=== PATIENT | male | born 1935 | race Caucasian/White ===

== ENCOUNTER 2017-06-28 15:36 | Outpatient (CLI) | payer MEDICARE ==
[2017-06-28 16:16] LABS: Bilirubin Negative (Negative); Blood, Urine Negative (Negative); Clarity CLEAR (Clear); Glucose, Urine (Dipstick) Negative (Negative); Leukocyte Negative (Negative); Nitrite Negative (Negative); Protein, Urine (Dipstick) Trace mg/dL (Neg-Trace); Specific Gravity, Urine 1.025 (1.002-1.036); Urobilinogen 0.2 mg/dL (0.2-1.0); pH, Urine 5.5 (5.0-9.0)
[2017-06-28 16:17] LABS: Hemoglobin 15.7 g/dL (14.0-18.0); Mean Corpuscular HGB CONC 34.6 g/dL (32.0-36.0); Mean Corpuscular Hemoglobin 32.8 pg (27.0-31.0); Mean Platelet Volume 6.7 fL (7.4-10.4); Platelet Count 186 thou/uL (130-400); RBC Distribution Width 12.3 % (11.5-14.5); Red Blood Cell (RBC) Count 4.79 mill/uL (4.70-6.10); White Blood Cell (WBC) Count 7.3 thou/uL (4.8-10.8)
[2017-06-28 16:21] LABS: Bacteria/HPF None Seen HPF (None Seen); Hyaline Casts/LPF 0-3 HYALINE CAST LPF (0-3 Hyaline); Squamous Epithelial None Seen HPF (0-3); WBC/HPF 0-3 HPF (0-3)
[2017-06-28 16:22] LABS: Prothrombin Time 13.1 SEC (12.0-14.7)
[2017-06-28 16:39] LABS: Anion Gap 14 mmol/L (10-20); BUN (Urea Nitrogen) 29 mg/dL (8.4-25.7); Calc. Creatinine Clearance 0 mL/min (70-130); Calcium 9.8 mg/dL (7.8-10.44); Carbon Dioxide 25 mmol/L (23-31); Chloride 106 mmol/L (98-107); Estimated GFR-MDRD 47; Glucose 98 mg/dL (83-110); Potassium 3.8 mmol/L (3.5-5.1); Sodium 141 mmol/L (136-145)
--- NOTE | 2017-06-29 15:56 | EKG ---
Test Reason : Blood Pressure : / mmHG Vent. Rate : 066 BPM Atrial Rate : 066 BPM P-R Int : 180 ms QRS Dur : 182 ms QT Int : 480 ms P-R-T Axes : 012 124 -29 degrees QTc Int : 503 ms Normal sinus rhythm Left bundle branch block Abnormal ECG Confirmed by JAMISON PAULSON ([id number]) on 06/29/2017 3:55:58 PM Referred By: TETO Confirmed By:JAMISON PAULSON
== END 2017-06-28 15:37 | disposition home or self-care (01) ==
LOC: LABBT 15:36
PROVIDERS: ATTEND Orthopaedic Surgery
DX: Z01.810 Encounter for preprocedural cardiovascular examination (principal); Z01.812 Encounter for preprocedural laboratory examination; M17.12 Unilateral primary osteoarthritis, left knee
CPT/HCPCS: 80048; 81001; 85027; 85610; 86850; 86900; 86901; 93005; 93010

== ENCOUNTER 2017-07-05 06:11 | Inpatient (IN) | payer MEDICARE ==
--- NOTE | 2017-07-01 13:27 | HP ---
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 T he pain is now interfering with day-to-day activities including walking, getting dressed, and sleepin g. PAST MEDICAL HISTORY: The patient is otherwise in good health, has history of hypertension. CURRENT MEDICATIONS: Include Norvasc and 81 mg aspirin. ALLERGIES: He has no allergies. FAMILY HISTORY: Otherwise unremarkable. SOCIAL HISTORY: Otherwise unremarkable. REVIEW OF SYSTEMS: Otherwise unremarkable. PHYSICAL EXAMINATION: GENERAL: Reveals a healthy elderly male. HEENT: Unremarkable. NECK: Supple. CHEST: Clear. HEART: Regular rate and rhythm. ABDOMEN: Soft, nontender. RECTAL/GENITAL: Deferred. EXTREMITIES: Pertinent findings of the left knee: There is trace effusion. There is moderate varus . There is tenderness and crepitus over the medial joint line. There is no instability. Neurovascu lar exam is intact. Pulses are 1+. There is a left antalgic gait. There is no instability. Range of motion is 5-105 degrees. X-RAY FINDINGS: X-rays of the left knee reveal bone on bone collapse medially. IMPRESSION: 1. Degenerative arthritis, left knee. 2. History of hypertension. PLAN: Left total knee replacement. The nature of the surgery, length of recovery, and potential com plications such as infection, loss of motion, incomplete relief, delayed wound healing, neurovascular injury, thromboembolic phenomenon, possible transfusion, and need for revision have been discussed i n detail.
[2017-07-05] MEDS ORDERED: Tranexamic Acid 1,000 MG/100 ML BAG ONE ×2 (07:41→11:23)
[2017-07-05] MEDS ORDERED: CEFAZOLIN/Water 2 GM/20 ML SYRINGE ONE (07:41)
[2017-07-05] MEDS ORDERED: Fentanyl 100 MCG/2 ML VIAL ONE ×2 (08:15→10:02)
[2017-07-05] MEDS ORDERED: Midazolam HCl 2 mg/2 ml Vial ONE (08:15)
[2017-07-05] MEDS ORDERED: Bupivacaine 0.25% HCL 30 ML VIAL ONE (09:00)
[2017-07-05] MEDS ORDERED: Lidocaine 1% w/Epinephrine 1:100K 30 ML VIAL ONE (09:00)
[2017-07-05] MEDS ORDERED: Lidocaine 1% (PF) 30 ML VIAL ONE (09:01)
[2017-07-05] MEDS ORDERED: Promethazine HCl 25 MG/ML VIAL IM PRN ×2 (09:46→10:06)
[2017-07-05] MEDS ORDERED: Ondansetron HCl/PF 4 MG/2 ML Vial IVP PRN ×2 (09:46→12:15)
[2017-07-05] MEDS ORDERED: Promethazine HCl 25 MG/ML VIAL SLOW IVP PRN ×2 (09:46→12:15)
[2017-07-05] MEDS ORDERED: Fentanyl 100 MCG/2 ML VIAL IV PRN (10:06)
[2017-07-05] MEDS ORDERED: traMADol HCl 50 MG TAB PO PRN ×3 (10:06→12:15)
[2017-07-05] MEDS ORDERED: Tranexamic Acid 1,000 MG in Sodium Chloride 0.9% 100 ML IVPB SCH ×2 (11:30→12:15)
--- NOTE | 2017-07-05 11:59 | OP ---
DATE OF PROCEDURE: 07/05/2017 SURGEON: Neal Vásquez M.D. CARE PROGRAM DIRECTOR: Edgar Delacruz PA-C. ANESTHESIA: General plus femoral and sciatic nerve blocks. PREOPERATIVE DIAGNOSIS: Degenerative arthritis, left knee. POSTOPERATIVE DIAGNOSIS: Degenerative arthritis, left knee. PROCEDURES: Left total knee replacement with computer-assisted navigation with cemented [place] Tria thlon components (#5 femoral component, #5 universal tibial baseplate with 9 mm CS plastic insert, an d A32 all plastic patellar component). NARRATIVE REPORT: After satisfactory anesthesia was induced in supine position, sequential compressi on device was placed on the non-operative leg throughout the procedure. The patient's left leg was t hen prepped and draped in routine sterile fashion. The leg was elevated, exsanguinated with an Esmar ch bandage, and the tourniquet inflated to 250 mmHg. A gently curved medial parapatellar incision wa s made and carried down through subcutaneous tissues. Bleeding points controlled with Bovie cautery. Medial parapatellar arthrotomy was performed. Patella was dislocated laterally and portions of the fat pad were excised for exposure. There was marked tricompartmental degenerative arthritis of the knee, especially medially, with large areas of exposed bone. Meniscal remnants and osteophytes were removed. Using the AdMaster pinless navigation system and the appropriate guides, the distal femoral and proximal tibial articular surfaces were excised with an oscillating saw to accept the trial compo nents. It was felt that a #5 femoral component and #5 tibial baseplate with 9 mm CS plastic insert g ave appropriate size, fit, and stability. The patellar articular surface was excised to accept an al l plastic A32 patellar component. There was good range of motion and good patellar tracking. The tr ial components were removed. The knee was copiously irrigated with pulsatile lavage and the bony floyd faces thoroughly cleaned and dried. The permanent components were then cemented in a single stage us ing 1 package of cement premixed with 1 gram of tobramycin powder. Excess cement was removed. There was again good fit and stability of the components. The knee was then copiously irrigated. The med ial retinaculum and quadriceps mechanism was closed with interrupted #2 Vicryl and a running #2 Quill . Subcutaneous tissues were closed with running 0 Quill suture. The skin incision was infiltrated w ith a mixture of 50% mixture of 0.25% Marcaine and 1% lidocaine with epinephrine. 20 mL was used to inject the skin and additional 20 mL injected into the knee joint. Skin was closed with running subc uticular 3-0 Monoderm and SurgiSeal skin adhesive. A sterile bulky dressing was applied and the tour niquet deflated after 73 minutes. The foot promptly pinked up and the patient was awakened and taken to recovery room in stable condition. There were no apparent intraoperative complications. The est imated blood loss was less than 100 mL
[2017-07-05] MEDS ORDERED: Zolpidem Tartrate 5 MG TAB PO PRN (12:15)
[2017-07-05] MEDS ORDERED: Acetaminophen 325 MG TAB PO PRN (12:15)
[2017-07-05] MEDS ORDERED: DEXTRAN OP SCH (12:15)
[2017-07-05] MEDS ORDERED: HYDROcodone/Acetaminophen 10/325 mg Tablet PO PRN ×2 (12:15)
[2017-07-05] MEDS ORDERED: [UNRECOGNIZED DRUG - OTHER] OP SCH (12:15)
[2017-07-05] MEDS ORDERED: Fentanyl 100 MCG/2 ML VIAL SLOW IVP PRN ×2 (12:15)
[2017-07-05] MEDS ORDERED: GLYCERIN OP SCH (12:15)
[2017-07-05] MEDS ORDERED: diphenhydrAMINE 25 MG CAP PO PRN (12:15)
[2017-07-05] MEDS ORDERED: HYPROMELLOSE OP SCH (12:15)
[2017-07-05] MEDS ORDERED: Artificial Tear Sol 15 ML BOT EA EYE PRN (12:30)
[2017-07-05] MEDS: Sodium Chloride 0.9% 1,000 ML IV SCH ×2 (12:38→23:20)
[2017-07-05] MEDS ORDERED: Ropivacaine 0.5% HCl/PF (150 MG/30 ML VIAL) ONE (13:40)
[2017-07-05] MEDS ORDERED: Ropivacaine 0.2% HCl/PF (40 MG/20 ML VIAL) ONE (13:40)
--- NOTE | 2017-07-05 13:40 | RAD ---
LEFT KNEE TWO VIEWS: HISTORY: Left total knee arthroplasty. FINDINGS/IMPRESSION: There are recent post-op changes of total knee arthroplasty in good position and alignment. Soft tis haritha air is present. POS: OFF
[2017-07-05] MEDS ORDERED: PROPOFOL 200 MG/20 ML VIAL ONE (14:42)
[2017-07-05] MEDS ORDERED: Lidocaine 1% PF 5 ML VIAL ONE (14:42)
[2017-07-05] MEDS ORDERED: Ondansetron HCl/PF 4 MG/2 ML Vial ONE (14:47)
[2017-07-05] MEDS: CEFAZOLIN/Water 2 GM/20 ML SYRINGE SLOW IVP SCH ×2 (15:27→23:22)
--- NOTE | 2017-07-05 16:53 | PDOC.PN ---
- Subjective Encounter Start Date: 07/05/17 Encounter Start Time: 16:00 Pt seen for management of medical comorbidities including hypertension. Reports suprapubic pain, no fevers. - Objective MAR Reviewed: Yes Vital Signs & Weight: Vital Signs (12 hours) Temp Pulse Resp BP Pulse Ox 07/05/17 09:19 97.9 F 82 16 132/78 94 L Weight Weight 6.173 oz Phys Exam - Physical Examination Constitutional: NAD HEENT: moist MMs Neck: supple Respiratory: clear to auscultation bilateral Cardiovascular: RRR Gastrointestinal: soft Mild suprapubic tenderness s/p L knee surgery Neurological: moves all 4 limbs Psychiatric: normal affect Dx/Plan (1) HTN (hypertension) Code(s): I10 - ESSENTIAL (PRIMARY) HYPERTENSION Status: Chronic (2) Arthritis Code(s): M19.90 - UNSPECIFIED OSTEOARTHRITIS, UNSPECIFIED SITE Status: Chronic - Plan plan discussed w/ family * . Monitor vital signs, titrate antihypertensives as needed. Pt takes 'Prostata' supplement at home, son trying to see if he can purchase it locally. s/p L TKR. DVT prophylaxis and pain management per orthopedic surgery. Review of Systems - Review of Systems Respiratory: negative: Cough, Dry, Shortness of Breath, Hemoptysis, SOB with Excertion, Pleuritic Pain, Sputum, Wheezing Cardiovascular: negative: chest pain, palpitations, orthopnea, paroxysmal nocturnal dyspnea, edema, light headedness Gastrointestinal: negative: Nausea, Vomiting, Abdominal Pain, Diarrhea, Constipation, Melena, Hematochezia Genitourinary: Retention - Medications/Allergies Allergies/Adverse Reactions: Allergies Allergy/AdvReac Type Severity Reaction Status Date / Time No Known Allergies Allergy Verified 06/22/17 12:41 Medications: Current Medications Acetaminophen (Tylenol) 650 mg PO Q4H PRN PRN Reason: BENEDICT/ T > 101F; Mild Pain (1-3) Hydrocodone Bitart/Acetaminophen ([place] 10/325) 1 tab PO Q4H PRN PRN Reason: Pain (1-3) Hydrocodone Bitart/Acetaminophen ([place] 10/325) 2 tab PO Q4H PRN PRN Reason: PAIN (4-6) Hydrocodone Bitart/Acetaminophen ([place] 10/325) 1 tab PO Q4H PRN PRN Reason: Moderate Pain (4-6) Hydrocodone Bitart/Acetaminophen ([place] 10/325) 2 tab PO Q4H PRN PRN Reason: Severe Pain (7-10) Amlodipine Besylate (Norvasc) 10 mg PO DAILY [facility] Artificial Tears (Tears Renewed 15ml Bottle) 0 drop EA EYE PRN PRN PRN Reason: DRY EYE Aspirin (Ecotrin) 81 mg PO BID [facility] Bisoprolol Fumarate/HCTZ (Ziac 5-6.25) 1 tab PO DAILY [facility] Cefazolin Sodium (Ancef) 2 gm SLOW IVP Q8H [facility] Stop: 07/05/17 23:01 Last Admin: 07/05/17 15:27 Dose: 2 gm Coenzyme Q10 (Coenzyme Q10) 50 mg PO DAILY [facility] Diphenhydramine HCl (Benadryl) 25 mg PO Q6H PRN PRN Reason: Itching Fentanyl (Sublimaze) 50 mcg IV Q1H PRN PRN Reason: Moderate to Severe Pain (6-10) Fentanyl (Sublimaze) 50 mcg SLOW IVP Q30MIN PRN PRN Reason: Moderate Pain (4-6) Fentanyl (Sublimaze) 100 mcg SLOW IVP Q1H PRN PRN Reason: Severe Pain (7-10) Ferrous Gluconate (Fergon) 324 mg PO BID [facility] Ropivacaine 250 ml/ Device 250 mls @ 0 mls/hr NERVE BLCK INF [facility] PRN Reason: As Directed Sodium Chloride (Normal Saline 0.9%) 1,000 mls @ 100 mls/hr IV .Q10H [facility] Last Admin: 07/05/17 12:38 Dose: Not Given Tranexamic Acid 1,000 mg/ (Sodium Chloride) 110 mls @ 200 mls/hr IVPB ONE [facility] Stop: 07/05/17 21:00 Vancomycin HCl 1 gm/ Device 200 mls @ 200 mls/hr IVPB 1999 [facility] Stop: 07/05/17 22:00 Iron/Minerals/Multivitamins (Theragran M) 1 tab PO DAILY [facility] Ondansetron HCl (Zofran) 4 mg IVP Q6H PRN PRN Reason: Nausea/Vomiting Ondansetron HCl (Zofran) 4 mg IVP Q6H PRN PRN Reason: Nausea/Vomiting Promethazine HCl (Phenergan) 12.5 mg IM Q4H PRN PRN Reason: Nausea Promethazine HCl (Phenergan) 12.5 mg SLOW IVP Q4H PRN PRN Reason: Nausea/Vomiting Senna/Docusate Sodium (Senokot S) 2 tab PO BID [facility] Sodium Chloride (Flush - Normal Saline) 10 ml IVF PRN PRN PRN Reason: Saline Flush Tramadol HCl (Ultram) 50 mg PO Q6H PRN PRN Reason: Mild Pain (1-3) Tramadol HCl (Ultram) 100 mg PO Q6H PRN PRN Reason: Moderate Pain 4-6 Tramadol HCl (Ultram) 100 mg PO Q6H PRN PRN Reason: Mild Pain (1-3) Zolpidem Tartrate (Ambien) 5 mg PO HSPRN PRN PRN Reason: Insomnia Zolpidem Tartrate (Ambien) 5 mg PO HSPRN PRN PRN Reason: Insomnia
[2017-07-05] MEDS ORDERED: Vancomycin HCl 1 GM in Premix Bag 1 BAG IVPB SCH (20:00)
[2017-07-05] MEDS: HYDROcodone/Acetaminophen 10/325 mg Tablet PO PRN (20:34)
[2017-07-05] MEDS: Aspirin 81 mg Enteric Coated Tablet PO SCH (20:37)
[2017-07-05] MEDS: Tamsulosin HCl 0.4 MG CAP PO SCH (20:37)
[2017-07-05] MEDS: Ferrous Gluconate 324 MG TAB PO SCH (20:38)
[2017-07-05] MEDS: Senokot S 8.6-50 MG TAB PO SCH (20:39)
[2017-07-06] MEDS: HYDROcodone/Acetaminophen 10/325 mg Tablet PO PRN ×3 (03:09→20:40)
[2017-07-06 04:45] LABS: Mean Corpuscular Hemoglobin 31.7 pg (27.0-31.0); Mean Corpuscular Volume 96.1 fl (80.0-94.0); Platelet Count 138 thou/uL (130-400); RBC Distribution Width 12.4 % (11.5-14.5); White Blood Cell (WBC) Count 10.2 thou/uL (4.8-10.8)
--- NOTE | 2017-07-06 06:38 | CON ---
DATE OF CONSULTATION: 07/05/2017 REASON FOR CONSULTATION: Urinary retention. HISTORY OF PRESENT ILLNESS: Mr. Valdez is an 81-year-old gentleman admitted to the hospital for a l eft total knee replacement. He has status post surgery. He tolerated the surgery well, but has havi ng voiding difficulties. Bladder scan was revealed over 500 mL in his bladder. He was straight cath eterized and then his retention recurred. A Giraldo catheter has now been placed and is draining clear yellow urine. The patient states that he has been taking Prostata at home, but has not taken it for the last day or two. Normally he voids without difficulties, he typically has nocturia one time per night. He gudelia es any difficulty voiding prior to admission. He denies any prior prostate surgery. He has been lianet d his PSA was little elevated in the past, but he has been following up with his urologist in [place], Dr. Palma and has been told that things look good and he did need a follow up until nex t year. PAST MEDICAL HISTORY: Hypertension. PAST SURGICAL HISTORY: Left total knee replacement. CURRENT MEDICATIONS: Norvasc, aspirin, Prostata. ALLERGIES: No known drug allergies. SOCIAL HISTORY: Denies excessive alcohol use, denies smoking. FAMILY HISTORY: Noncontributory. REVIEW OF SYSTEMS: Respiratory: No shortness of breath. Cardiovascular: No chest pain or palpitat ions. Gastrointestinal: Denies chronic constipation or diarrhea. Genitourinary: Please see histor y of present illness. Musculoskeletal: Status post total knee replacement today. Denies any other joint issues. Neurologic: Denies dizziness or unilateral weakness. Endocrine: Denies history of d iabetes. PHYSICAL EXAMINATION: GENERAL: He is awake and alert, is in no distress. HEENT: Normocephalic, atraumatic. NECK: Supple, without masses. CHEST: Clear to auscultation. CARDIOVASCULAR: No murmurs auscultated. ABDOMEN: Soft, nontender. GENITOURINARY: Deferred. The patient recently seen by his urologist. IMPRESSION: Mr. Valdez had no voiding complaints prior to admission while taking Prostata. He has stopped this medication. More importantly, he is now postoperative and has developed postoperative u rinary retention. We will begin Flomax tonight. The catheter should be left in place until the day of discharge. It can be removed at that time as the patient is still not able to void and the Giraldo catheter should be replaced. If this is the case, he can be discharged home with his Giraldo catheter. He will make arrangements if he is discharged home with a Giraldo catheter for further outpatient man agement by his urologist Dr. Palma at the [facility]. RECOMMENDATIONS: 1. Flomax. 2. Catheter removal prior to discharge and replace Giraldo catheter, if he fails a voiding trial for d ischarge home with catheter in place.
[2017-07-06] MEDS: Aspirin 81 mg Enteric Coated Tablet PO SCH ×2 (08:30→20:39)
[2017-07-06] MEDS: Senokot S 8.6-50 MG TAB PO SCH ×2 (08:37→20:39)
[2017-07-06] MEDS: Multivitamin W/ Minerals 1 TAB PO SCH ×2 (08:37→08:38)
[2017-07-06] MEDS: Ferrous Gluconate 324 MG TAB PO SCH ×2 (08:37→20:39)
[2017-07-06] MEDS: Ubidecarenone 50 MG CAP PO SCH (08:38)
[2017-07-06] MEDS: Amlodipine 10 MG TAB PO SCH (08:38)
[2017-07-06] MEDS ORDERED: [UNRECOGNIZED DRUG - OTHER] PO SCH (09:00)
[2017-07-06] MEDS ORDERED: Non-Formulary Item 1 EACH (Ubidecarenone [Coq-10] 50 MG) PO SCH (09:00)
[2017-07-06] MEDS ORDERED: Non-Formulary Item 1 EACH (Glucosamine/D3/Boswellia Serra [Osteo Bi-Flex One Per Day] 1 T PO SCH (09:00)
[2017-07-06] MEDS: Ropivacaine HCl/PF 250 ML in Premix Bag 1 BAG NERVE BLCK SCH (12:24)
[2017-07-06] MEDS: Sodium Chloride 0.9% 1,000 ML IV SCH ×2 (12:32→17:39)
[2017-07-06] MEDS: Bisoprolol Fumarate/HCTZ 5 mg/6.25 mg Tablet PO SCH (12:38)
--- NOTE | 2017-07-06 15:37 | PDOC.PN ---
- Subjective Encounter Start Date: 07/06/17 Encounter Start Time: 08:40 Pt seen for followup re: hypertension. Denies chest pain. No nausea or vomiting. - Objective MAR Reviewed: Yes Vital Signs & Weight: Vital Signs (12 hours) Temp Pulse Resp BP BP Pulse Ox 07/06/17 13:02 97.4 F L 102 H 16 147/70 H 95 07/06/17 08:38 95 145/79 H 07/06/17 08:15 97.5 F L 95 18 07/06/17 07:30 97.5 F L 87 16 145/79 H 95 07/06/17 03:45 97.4 F L 95 18 139/80 97 Weight Admit Weight 175 lb Weight 175 lb I&O: 07/05/17 07/06/17 07/07/17 06:59 06:59 06:59 Intake Total 2030 Output Total 4500 Balance -2470 Result Diagrams: 07/06/17 04:05 Phys Exam - Physical Examination Constitutional: NAD HEENT: moist MMs Neck: supple Respiratory: clear to auscultation bilateral Cardiovascular: RRR Gastrointestinal: soft adams catheter s/p L knee surgery Neurological: moves all 4 limbs Psychiatric: normal affect Dx/Plan (1) HTN (hypertension) Code(s): I10 - ESSENTIAL (PRIMARY) HYPERTENSION Status: Chronic (2) Arthritis Code(s): M19.90 - UNSPECIFIED OSTEOARTHRITIS, UNSPECIFIED SITE Status: Chronic - Plan * . Pt seen by urology service, has adams catheter. Blood pressure stable. Continue to monitor vital signs. Review of Systems - Review of Systems Cardiovascular: negative: chest pain, palpitations, orthopnea, paroxysmal nocturnal dyspnea, edema, light headedness Gastrointestinal: negative: Nausea, Vomiting, Abdominal Pain, Diarrhea, Constipation, Melena, Hematochezia Genitourinary: Retention - Medications/Allergies Allergies/Adverse Reactions: Allergies Allergy/AdvReac Type Severity Reaction Status Date / Time No Known Allergies Allergy Verified 06/22/17 12:41 Medications: Current Medications Acetaminophen (Tylenol) 650 mg PO Q4H PRN PRN Reason: BENEDICT/ T > 101F; Mild Pain (1-3) Hydrocodone Bitart/Acetaminophen ([place] 10/325) 1 tab PO Q4H PRN PRN Reason: Pain (1-3) Last Admin: 07/06/17 12:28 Dose: 1 tab Hydrocodone Bitart/Acetaminophen ([place] 10/325) 2 tab PO Q4H PRN PRN Reason: PAIN (4-6) Last Admin: 07/06/17 03:09 Dose: 2 tab Hydrocodone Bitart/Acetaminophen ([place] 10/325) 1 tab PO Q4H PRN PRN Reason: Moderate Pain (4-6) Hydrocodone Bitart/Acetaminophen ([place] 10/325) 2 tab PO Q4H PRN PRN Reason: Severe Pain (7-10) Amlodipine Besylate (Norvasc) 10 mg PO DAILY [facility] Last Admin: 07/06/17 08:38 Dose: 10 mg Artificial Tears (Tears Renewed 15ml Bottle) 0 drop EA EYE PRN PRN PRN Reason: DRY EYE Aspirin (Ecotrin) 81 mg PO BID [facility] Last Admin: 07/06/17 08:30 Dose: 81 mg Bisoprolol Fumarate/HCTZ ([place] 5-6.25) 1 tab PO DAILY [facility] Last Admin: 07/06/17 12:38 Dose: 1 tab Coenzyme Q10 (Coenzyme Q10) 50 mg PO DAILY [facility] Last Admin: 07/06/17 08:38 Dose: 50 mg Diphenhydramine HCl (Benadryl) 25 mg PO Q6H PRN PRN Reason: Itching Fentanyl (Sublimaze) 50 mcg IV Q1H PRN PRN Reason: Moderate to Severe Pain (6-10) Fentanyl (Sublimaze) 50 mcg SLOW IVP Q30MIN PRN PRN Reason: Moderate Pain (4-6) Fentanyl (Sublimaze) 100 mcg SLOW IVP Q1H PRN PRN Reason: Severe Pain (7-10) Ferrous Gluconate (Fergon) 324 mg PO BID [facility] Last Admin: 07/06/17 08:37 Dose: 324 mg Ropivacaine 250 ml/ Device 250 mls @ 0 mls/hr NERVE BLCK INF [facility] PRN Reason: As Directed Last Admin: 07/06/17 12:24 Dose: 250 mls Sodium Chloride (Normal Saline 0.9%) 1,000 mls @ 100 mls/hr IV .Q10H [facility] Last Admin: 07/06/17 12:32 Dose: Not Given Iron/Minerals/Multivitamins (Theragran M) 1 tab PO DAILY [facility] Last Admin: 07/06/17 08:38 Dose: 1 tab Ondansetron HCl (Zofran) 4 mg IVP Q6H PRN PRN Reason: Nausea/Vomiting Ondansetron HCl (Zofran) 4 mg IVP Q6H PRN PRN Reason: Nausea/Vomiting Promethazine HCl (Phenergan) 12.5 mg IM Q4H PRN PRN Reason: Nausea Promethazine HCl (Phenergan) 12.5 mg SLOW IVP Q4H PRN PRN Reason: Nausea/Vomiting Senna/Docusate Sodium (Senokot S) 2 tab PO BID [facility] Last Admin: 07/06/17 08:37 Dose: 2 tab Sodium Chloride (Flush - Normal Saline) 10 ml IVF PRN PRN PRN Reason: Saline Flush Tamsulosin HCl (Flomax) 0.4 mg PO HS [facility] Last Admin: 07/05/17 20:37 Dose: 0.4 mg Tramadol HCl (Ultram) 50 mg PO Q6H PRN PRN Reason: Mild Pain (1-3) Tramadol HCl (Ultram) 100 mg PO Q6H PRN PRN Reason: Moderate Pain 4-6 Tramadol HCl (Ultram) 100 mg PO Q6H PRN PRN Reason: Mild Pain (1-3) Zolpidem Tartrate (Ambien) 5 mg PO HSPRN PRN PRN Reason: Insomnia Zolpidem Tartrate (Ambien) 5 mg PO HSPRN PRN PRN Reason: Insomnia
[2017-07-06] MEDS: Tamsulosin HCl 0.4 MG CAP PO SCH (20:39)
[2017-07-07] MEDS: Sodium Chloride 0.9% 1,000 ML IV SCH ×2 (01:58→13:18)
[2017-07-07] MEDS: Diltiazem HCl 125 MG, Admixture Fee 1 EACH in Sodium Chloride 0.9% 100 ML IVPB SCH (05:49)
[2017-07-07] MEDS: Ubidecarenone 50 MG CAP PO SCH (09:20)
[2017-07-07] MEDS: Ferrous Gluconate 324 MG TAB PO SCH ×2 (09:20→20:25)
[2017-07-07] MEDS: Bisoprolol Fumarate/HCTZ 5 mg/6.25 mg Tablet PO SCH (09:20)
[2017-07-07] MEDS: Senokot S 8.6-50 MG TAB PO SCH ×2 (09:20→20:27)
[2017-07-07] MEDS: Aspirin 81 mg Enteric Coated Tablet PO SCH ×2 (09:21→20:25)
[2017-07-07] MEDS: Multivitamin W/ Minerals 1 TAB PO SCH (09:21)
[2017-07-07] MEDS: Amlodipine 10 MG TAB PO SCH (09:21)
--- NOTE | 2017-07-07 13:44 | CON ---
DATE OF CONSULTATION: 07/07/2017 REASON FOR CONSULTATION: Atrial fibrillation. 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 HISTORY OF PRESENT ILLNESS: Mr. Valdez is a very pleasant 81-year-old gentleman who has not been se en or evaluated by Cardiology in the past. He recently underwent knee surgery. His last documented sinus rhythm was on 06/28/2017. He underwent surgery on 07/05/2017. He was found to have elevated h eart rate. EKG confirmed atrial fibrillation with RVR. Timing is unknown. He is currently fairly a symptomatic. No previous history of atrial fibrillation. No previous history of syncope, presyncope , chest pain, pressure, shortness of breath. He does have an underlying left bundle branch block. PAST MEDICAL HISTORY: Hypertension. PAST SURGICAL HISTORY: Knee surgery. CURRENT MEDICATIONS: Norvasc, aspirin. ALLERGIES: None. SOCIAL HISTORY: No current tobacco or alcohol use. He is currently . REVIEW OF SYSTEMS: Ten point review of systems reviewed and as above, otherwise negative. PHYSICAL EXAMINATION: GENERAL: Patient is a pleasant male who is in no acute distress. The patient appears his stated age . VITAL SIGNS: Blood pressure 108/71, pulse 97, temperature 97.8. NEUROLOGIC: The patient is alert and oriented times 3 with no focal neurologic deficits. HEENT: Sclerae without icterus. Mouth has moist mucous membranes with normal pallor. NECK: No JVD. Carotid upstroke brisk. No bruits bilaterally. LUNGS: Clear to auscultation with unlabored respirations. BACK: No scoliosis or kyphosis. CARDIAC: Irregularly irregular. ABDOMEN: Soft, nontender, nondistended. No peritoneal signs present. No hepatosplenomegaly. No ab normal striae. EXTREMITIES: 2+ femoral and 2+ dorsalis pedis pulses. No cyanosis, clubbing, or edema. SKIN: No gross abnormalities. PERTINENT LABORATORY DATA: Hemoglobin 14, creatinine 1.44 from 06/28/2017. IMPRESSION: Atrial fibrillation with rapid ventricular response. RECOMMENDATIONS: Likely related to a recent surgery. At this point, we will continue Cardizem at 5 mg IV. We will supplement with p.o. Cardizem and increase as needed. Unfortunately, last documented sinus rhythm was 1 week ago and I would not feel comfortable proceeding with cardioversion. We woul d recommend rate control in hopes that he converts on his own. If not, may consider anticoagulation therapy. We would recommend echo with Doppler.
[2017-07-07] MEDS: Ropivacaine HCl/PF 250 ML in Premix Bag 1 BAG NERVE BLCK SCH (14:32)
--- NOTE | 2017-07-07 16:08 | PDOC.PN ---
- Subjective Encounter Start Date: 07/07/17 Encounter Start Time: 08:00 Pt seen for followup re: atrial fibrillation with RVR. Denies any chest pain. Had palpitations early AM, not now. - Objective MAR Reviewed: Yes Vital Signs & Weight: Vital Signs (12 hours) Temp Pulse Resp BP Pulse Ox 07/07/17 15:42 97.6 F 87 16 125/63 92 L 07/07/17 11:23 97.8 F 97 16 108/71 92 L 07/07/17 09:21 83 07/07/17 08:00 98.1 F 83 18 93 L 07/07/17 07:43 98.1 F 83 16 130/76 93 L 07/07/17 05:30 97.7 F 140 H 18 157/82 H 93 L 07/07/17 04:30 98.1 F 128 H 16 113/54 L 96 Weight Admit Weight 175 lb Weight 175 lb I&O: 07/06/17 07/07/17 07/08/17 06:59 06:59 06:59 Intake Total 2029 1440 Output Total 4500 2700 Balance -2470 -1260 Result Diagrams: 07/06/17 04:05 Additional Labs: Accuchecks 07/07/17 12:20 POC Glucose 114 H EKG Reviewed by me: Yes (Tele: edy dover with RVR) Phys Exam - Physical Examination Constitutional: NAD HEENT: moist MMs Neck: supple Respiratory: clear to auscultation bilateral Cardiovascular: irregular Gastrointestinal: soft s/p L knee surgery Neurological: moves all 4 limbs Psychiatric: normal affect Dx/Plan (1) Atrial fibrillation with RVR Code(s): I48.91 - UNSPECIFIED ATRIAL FIBRILLATION Status: Acute (2) HTN (hypertension) Code(s): I10 - ESSENTIAL (PRIMARY) HYPERTENSION Status: Chronic (3) Arthritis Code(s): M19.90 - UNSPECIFIED OSTEOARTHRITIS, UNSPECIFIED SITE Status: Chronic - Plan * . Check TSH. cardizem drip. Cardiology consult. Continue aspirin. Review of Systems - Review of Systems Respiratory: negative: Cough, Dry, Shortness of Breath, Hemoptysis, SOB with Excertion, Pleuritic Pain, Sputum, Wheezing Cardiovascular: palpitations. negative: chest pain, orthopnea, paroxysmal nocturnal dyspnea, edema, light headedness - Medications/Allergies Allergies/Adverse Reactions: Allergies Allergy/AdvReac Type Severity Reaction Status Date / Time No Known Allergies Allergy Verified 06/22/17 12:41 Medications: Current Medications Acetaminophen (Tylenol) 650 mg PO Q4H PRN PRN Reason: BENEDICT/ T > 101F; Mild Pain (1-3) Hydrocodone Bitart/Acetaminophen ([place] 10/325) 1 tab PO Q4H PRN PRN Reason: Pain (1-3) Last Admin: 07/06/17 20:40 Dose: 1 tab Hydrocodone Bitart/Acetaminophen ([place] 10/325) 2 tab PO Q4H PRN PRN Reason: PAIN (4-6) Last Admin: 07/06/17 03:09 Dose: 2 tab Artificial Tears (Tears Renewed 15ml Bottle) 0 drop EA EYE PRN PRN PRN Reason: DRY EYE Aspirin (Ecotrin) 81 mg PO BID [facility] Last Admin: 07/07/17 09:21 Dose: 81 mg Bisoprolol Fumarate/HCTZ ([place] 5-6.25) 1 tab PO DAILY [facility] Last Admin: 07/07/17 09:20 Dose: 1 tab Coenzyme Q10 (Coenzyme Q10) 50 mg PO DAILY [facility] Last Admin: 07/07/17 09:20 Dose: 50 mg Diltiazem HCl (Cardizem Cd) 180 mg PO DAILY [facility] Diphenhydramine HCl (Benadryl) 25 mg PO Q6H PRN PRN Reason: Itching Fentanyl (Sublimaze) 50 mcg IV Q1H PRN PRN Reason: Moderate to Severe Pain (6-10) Fentanyl (Sublimaze) 50 mcg SLOW IVP Q30MIN PRN PRN Reason: Moderate Pain (4-6) Fentanyl (Sublimaze) 100 mcg SLOW IVP Q1H PRN PRN Reason: Severe Pain (7-10) Ferrous Gluconate (Fergon) 324 mg PO BID [facility] Last Admin: 07/07/17 09:20 Dose: 324 mg Ropivacaine 250 ml/ Device 250 mls @ 0 mls/hr NERVE BLCK INF [facility] PRN Reason: As Directed Last Admin: 07/07/17 14:32 Dose: 250 mls Sodium Chloride (Normal Saline 0.9%) 1,000 mls @ 100 mls/hr IV .Q10H [facility] Last Admin: 07/07/17 13:18 Dose: Not Given Diltiazem HCl 125 mg/Miscellaneous Medication 1 each/ Sodium Chloride 125 mls @ 5 mls/hr IVPB INF [facility]; As Directed PRN Reason: Protocol Last Admin: 07/07/17 05:49 Dose: 125 mls Iron/Minerals/Multivitamins (Theragran M) 1 tab PO DAILY [facility] Last Admin: 07/07/17 09:21 Dose: 1 tab Ondansetron HCl (Zofran) 4 mg IVP Q6H PRN PRN Reason: Nausea/Vomiting Promethazine HCl (Phenergan) 12.5 mg IM Q4H PRN PRN Reason: Nausea Promethazine HCl (Phenergan) 12.5 mg SLOW IVP Q4H PRN PRN Reason: Nausea/Vomiting Senna/Docusate Sodium (Senokot S) 2 tab PO BID [facility] Last Admin: 07/07/17 09:20 Dose: 2 tab Sodium Chloride (Flush - Normal Saline) 10 ml IVF PRN PRN PRN Reason: Saline Flush Tamsulosin HCl (Flomax) 0.4 mg PO HS [facility] Last Admin: 07/06/17 20:39 Dose: 0.4 mg Tramadol HCl (Ultram) 50 mg PO Q6H PRN PRN Reason: Mild Pain (1-3) Tramadol HCl (Ultram) 100 mg PO Q6H PRN PRN Reason: Moderate Pain 4-6 Zolpidem Tartrate (Ambien) 5 mg PO HSPRN PRN PRN Reason: Insomnia
--- NOTE | 2017-07-07 18:58 | EKG ---
Test Reason : Blood Pressure : / mmHG Vent. Rate : 138 BPM Atrial Rate : 105 BPM P-R Int : 000 ms QRS Dur : 148 ms QT Int : 344 ms P-R-T Axes : 000 -18 145 degrees QTc Int : 521 ms Atrial fibrillation with rapid ventricular response Non-specific intra-ventricular conduction block Nonspecific ST-T changes Abnormal ECG When compared with ECG of 28-JUN-2017 15:50, Atrial fibrillation has replaced Sinus rhythm Vent. rate has increased BY 72 BPM QRS duration has decreased T wave inversion less evident in Inferior leads Confirmed by DR. China GOMES ([id number]) on 07/07/2017 6:57:51 PM Referred By: Confirmed By:DR. China GOMES
[2017-07-07] MEDS: Ondansetron HCl/PF 4 MG/2 ML Vial IVP PRN (20:24)
[2017-07-07] MEDS: Tamsulosin HCl 0.4 MG CAP PO SCH (20:25)
[2017-07-08] MEDS: Sodium Chloride 0.9% 1,000 ML IV SCH ×3 (00:17→20:42)
[2017-07-08] MEDS: Diltiazem HCl 125 MG, Admixture Fee 1 EACH in Sodium Chloride 0.9% 100 ML IVPB SCH ×2 (05:27→20:44)
[2017-07-08 05:35] LABS: #Eosinphils 0.1 thou/uL (0.0-0.7); #Monocytes 1.5 thou/uL (0.11-0.59); #Neutrophils 7.5 thou/uL (1.40-6.50); %Basophils 0.2 % (0.0-1.0); %Eosinophils 0.6 % (0.0-10.0); %Lymphocytes 9.9 % (21.0-51.0); %Monocytes 14.9 % (0.0-10.0); %Neutrophils 74.5 % (42.0-75.0); Hemoglobin 12.7 g/dL (14.0-18.0); Mean Corpuscular Hemoglobin 32.4 pg (27.0-31.0); Mean Corpuscular Volume 95.4 fl (80.0-94.0); Mean Platelet Volume 7.5 fL (7.4-10.4); Platelet Count 128 thou/uL (130-400); RBC Distribution Width 12.4 % (11.5-14.5); Red Blood Cell (RBC) Count 3.93 mill/uL (4.70-6.10); White Blood Cell (WBC) Count 10.1 thou/uL (4.8-10.8)
[2017-07-08 06:06] LABS: Anion Gap 13 mmol/L (10-20); BUN (Urea Nitrogen) 28 mg/dL (8.4-25.7); Calc. Creatinine Clearance 64 mL/min (70-130); Calcium 8.6 mg/dL (7.8-10.44); Carbon Dioxide 23 mmol/L (23-31); Chloride 100 mmol/L (98-107); Estimated GFR-MDRD 66; Glucose 87 mg/dL (83-110); Potassium 3.3 mmol/L (3.5-5.1); Sodium 133 mmol/L (136-145)
[2017-07-08] MEDS ORDERED: Potassium Chloride 20 MEQ TAB PO SCH (07:30)
[2017-07-08] MEDS: Ubidecarenone 50 MG CAP PO SCH (10:01)
[2017-07-08] MEDS: Bisoprolol Fumarate/HCTZ 5 mg/6.25 mg Tablet PO SCH (10:01)
[2017-07-08] MEDS: Ferrous Gluconate 324 MG TAB PO SCH ×2 (10:01→20:45)
[2017-07-08] MEDS: Senokot S 8.6-50 MG TAB PO SCH ×2 (10:01→20:45)
[2017-07-08] MEDS: Multivitamin W/ Minerals 1 TAB PO SCH (10:02)
[2017-07-08] MEDS: Aspirin 81 mg Enteric Coated Tablet PO SCH (10:02)
--- NOTE | 2017-07-08 11:58 | PDOC.PN ---
- Subjective Encounter Start Date: 07/08/17 Encounter Start Time: 07:20 Pt seen for followup re; edy dover with RVR. No complaints. - Objective MAR Reviewed: Yes Vital Signs & Weight: Vital Signs (12 hours) Temp Pulse Resp BP Pulse Ox 07/08/17 11:11 97.7 F 84 14 126/61 92 L 07/08/17 08:00 98.6 F 99 16 92 L 07/08/17 07:40 98.6 F 99 16 121/63 92 L 07/08/17 04:00 97.4 F L 92 20 121/71 93 L 07/08/17 00:00 98.8 F 94 18 112/62 97 Weight Admit Weight 175 lb Weight 185 lb I&O: 07/07/17 07/08/17 07/09/17 06:59 06:59 06:59 Intake Total 1440 1570 Output Total 2700 1125 100 Balance -1260 445 -100 Result Diagrams: 07/08/17 03:58 07/08/17 03:58 Additional Labs: Accuchecks 07/07/17 12:20 POC Glucose 114 H EKG Reviewed by me: Yes (Tele: edy dover) Phys Exam - Physical Examination Constitutional: NAD HEENT: moist MMs Neck: supple Respiratory: clear to auscultation bilateral Cardiovascular: irregular Gastrointestinal: soft s/p L knee surgery Neurological: moves all 4 limbs Psychiatric: normal affect Dx/Plan (1) Atrial fibrillation with RVR Code(s): I48.91 - UNSPECIFIED ATRIAL FIBRILLATION Status: Acute (2) HTN (hypertension) Code(s): I10 - ESSENTIAL (PRIMARY) HYPERTENSION Status: Chronic (3) Arthritis Code(s): M19.90 - UNSPECIFIED OSTEOARTHRITIS, UNSPECIFIED SITE Status: Chronic - Plan plan discussed w/ family, PT/OT, out of bed/ambulate * . Pt is back on cardizem drip. Monitor vital signs, titrate antihypertensives as needed. Echo pending. Review of Systems - Review of Systems Respiratory: negative: Cough, Dry, Shortness of Breath, Hemoptysis, SOB with Excertion, Pleuritic Pain, Sputum, Wheezing Cardiovascular: negative: chest pain, palpitations, orthopnea, paroxysmal nocturnal dyspnea, edema, light headedness Gastrointestinal: negative: Nausea, Vomiting, Abdominal Pain, Diarrhea, Constipation, Melena, Hematochezia - Medications/Allergies Allergies/Adverse Reactions: Allergies Allergy/AdvReac Type Severity Reaction Status Date / Time No Known Allergies Allergy Verified 06/22/17 12:41 Medications: Current Medications Acetaminophen (Tylenol) 650 mg PO Q4H PRN PRN Reason: BENEDICT/ T > 101F; Mild Pain (1-3) Hydrocodone Bitart/Acetaminophen ([place] 10/325) 1 tab PO Q4H PRN PRN Reason: Pain (1-3) Last Admin: 07/06/17 20:40 Dose: 1 tab Hydrocodone Bitart/Acetaminophen ([place] 10/325) 2 tab PO Q4H PRN PRN Reason: PAIN (4-6) Last Admin: 07/06/17 03:09 Dose: 2 tab Artificial Tears (Tears Renewed 15ml Bottle) 0 drop EA EYE PRN PRN PRN Reason: DRY EYE Aspirin (Ecotrin) 81 mg PO BID [facility] Last Admin: 07/08/17 10:02 Dose: 81 mg Bisoprolol Fumarate/HCTZ (Ziac 5-6.25) 1 tab PO DAILY [facility] Last Admin: 07/08/17 10:01 Dose: 1 tab Coenzyme Q10 (Coenzyme Q10) 50 mg PO DAILY [facility] Last Admin: 07/08/17 10:01 Dose: 50 mg Diltiazem HCl (Cardizem Cd) 240 mg PO DAILY [facility] Diphenhydramine HCl (Benadryl) 25 mg PO Q6H PRN PRN Reason: Itching Fentanyl (Sublimaze) 50 mcg IV Q1H PRN PRN Reason: Moderate to Severe Pain (6-10) Ferrous Gluconate (Fergon) 324 mg PO BID [facility] Last Admin: 07/08/17 10:01 Dose: 324 mg Ropivacaine 250 ml/ Device 250 mls @ 0 mls/hr NERVE BLCK INF [facility] PRN Reason: As Directed Last Admin: 07/07/17 14:32 Dose: 250 mls Sodium Chloride (Normal Saline 0.9%) 1,000 mls @ 100 mls/hr IV .Q10H [facility] Last Admin: 07/08/17 10:04 Dose: Not Given Diltiazem HCl 125 mg/Miscellaneous Medication 1 each/ Sodium Chloride 125 mls @ 5 mls/hr IVPB INF [facility]; As Directed PRN Reason: Protocol Last Admin: 07/08/17 05:27 Dose: 125 mls Iron/Minerals/Multivitamins (Theragran M) 1 tab PO DAILY [facility] Last Admin: 07/08/17 10:02 Dose: 1 tab Ondansetron HCl (Zofran) 4 mg IVP Q6H PRN PRN Reason: Nausea/Vomiting Last Admin: 07/07/17 20:24 Dose: 4 mg Promethazine HCl (Phenergan) 12.5 mg IM Q4H PRN PRN Reason: Nausea Promethazine HCl (Phenergan) 12.5 mg SLOW IVP Q4H PRN PRN Reason: Nausea/Vomiting Senna/Docusate Sodium (Senokot S) 2 tab PO BID [facility] Last Admin: 07/08/17 10:01 Dose: 2 tab Sodium Chloride (Flush - Normal Saline) 10 ml IVF PRN PRN PRN Reason: Saline Flush Tamsulosin HCl (Flomax) 0.4 mg PO HS [facility] Last Admin: 07/07/17 20:25 Dose: 0.4 mg Tramadol HCl (Ultram) 50 mg PO Q6H PRN PRN Reason: Mild Pain (1-3) Tramadol HCl (Ultram) 100 mg PO Q6H PRN PRN Reason: Moderate Pain 4-6 Zolpidem Tartrate (Ambien) 5 mg PO HSPRN PRN PRN Reason: Insomnia
[2017-07-08 15:34] VITALS: BMI 28.1
[2017-07-08] MEDS: Ropivacaine HCl/PF 250 ML in Premix Bag 1 BAG NERVE BLCK SCH (15:56)
[2017-07-08] MEDS ORDERED: Diltiazem HCl SR 60 mg Capsule PO SCH (16:15)
[2017-07-08] MEDS: Ondansetron HCl/PF 4 MG/2 ML Vial IVP PRN (16:22)
[2017-07-08] MEDS: Enoxaparin Sodium 80 MG/0.8 ML SYRINGE SC SCH (20:45)
[2017-07-08] MEDS: Tamsulosin HCl 0.4 MG CAP PO SCH (20:45)
[2017-07-08 21:47] LABS: Hemoglobin 12.3 g/dL (14.0-18.0); Platelet Count 143 thou/uL (130-400)
[2017-07-09] MEDS: Ondansetron HCl/PF 4 MG/2 ML Vial IVP PRN (01:04)
[2017-07-09] MEDS: Zolpidem Tartrate 5 MG TAB PO PRN (01:07)
[2017-07-09] MEDS: Sodium Chloride 0.9% 1,000 ML IV SCH ×2 (05:41→15:27)
[2017-07-09] MEDS ORDERED: Bisacodyl 10 MG SUPP PR PRN (08:09)
[2017-07-09] MEDS ORDERED: Fleet Enema 133 ML BOT PR PRN (08:10)
[2017-07-09] MEDS: Senokot S 8.6-50 MG TAB PO SCH ×2 (08:31→21:14)
[2017-07-09] MEDS: Enoxaparin Sodium 80 MG/0.8 ML SYRINGE SC SCH ×2 (08:31→21:14)
[2017-07-09] MEDS: Ubidecarenone 50 MG CAP PO SCH (08:31)
[2017-07-09] MEDS: Ferrous Gluconate 324 MG TAB PO SCH ×2 (08:31→21:14)
[2017-07-09] MEDS: Multivitamin W/ Minerals 1 TAB PO SCH (08:31)
[2017-07-09] MEDS ORDERED: Digoxin 0.5 MG/2 ML AMP SLOW IVP SCH (09:45)
--- NOTE | 2017-07-09 09:46 | PRG ---
DATE OF SERVICE: 07/09/2017 HISTORY OF PRESENT ILLNESS: Mr. Valdez's heart rate has increased today. He has gone from 180 mg q .a.m. to 240 q.a.m. with first dose this morning. He is fairly asymptomatic. Lovenox was started ye . PHYSICAL EXAMINATION: VITAL SIGNS: Blood pressure 124/66, pulse 90s to 100s, respirations 20. GENERAL: Alert and oriented x3. LUNGS: Clear to auscultation bilaterally, unlabored. CARDIAC: Irregular regular. No new murmurs. ABDOMEN: Soft, nontender, nondistended. EXTREMITIES: No edema. PERTINENT LABORATORY DATA: None today. IMPRESSION: 1. Atrial fibrillation with rapid ventricular response. 2. Recent knee surgery. 3. Left bundle branch block. RECOMMENDATIONS: 1. Echo pending. 2. Continue to increase calcium channel blockade for better rate control. 3. The plan is rate control and anticoagulation therapy. He will likely convert on his own over the coming weeks. If he continues to have elevation in heart rate despite medical therapy I would recom mend cardioversion on Wednesday. We will give 1 dose of digoxin now IV.
[2017-07-09] MEDS ORDERED: Bisacodyl 5 MG TAB PO PRN (12:26)
[2017-07-09] MEDS ORDERED: Melatonin 3 MG TAB PO PRN (12:27)
--- NOTE | 2017-07-09 12:28 | PDOC.PN ---
- Subjective Encounter Start Date: 07/09/17 Encounter Start Time: 07:00 Pt seen for followup re: a. fib with rvr. Denies chest pain or shortness of breath. Constipated. Occ nausea. - Objective MAR Reviewed: Yes Vital Signs & Weight: Vital Signs (12 hours) Temp Pulse Resp BP Pulse Ox 07/09/17 09:50 108 H 07/09/17 08:31 83 07/09/17 07:40 97.9 F 83 18 93 L 07/09/17 07:14 97.9 F 83 18 124/66 93 L 07/09/17 03:41 99.2 F 109 H 20 103/59 L 93 L Weight Admit Weight 175 lb Weight 184 lb 6.4 oz I&O: 07/08/17 07/09/17 07/10/17 06:59 06:59 06:59 Intake Total 1570 1450 Output Total 1125 1020 Balance 445 430 Result Diagrams: 07/08/17 21:35 07/08/17 21:35 EKG Reviewed by me: Yes (Tele; a. fib with RVR) Phys Exam - Physical Examination Constitutional: NAD HEENT: moist MMs Neck: supple Respiratory: clear to auscultation bilateral Cardiovascular: irregular Gastrointestinal: soft Musculoskeletal: pulses present s/p L knee surgery Neurological: moves all 4 limbs Psychiatric: normal affect Dx/Plan (1) Atrial fibrillation with RVR Code(s): I48.91 - UNSPECIFIED ATRIAL FIBRILLATION Status: Acute (2) HTN (hypertension) Code(s): I10 - ESSENTIAL (PRIMARY) HYPERTENSION Status: Chronic (3) Arthritis Code(s): M19.90 - UNSPECIFIED OSTEOARTHRITIS, UNSPECIFIED SITE Status: Chronic - Plan plan discussed w/ family, PT/OT, out of bed/ambulate * . PRN laxative. Still on cardizem drip, cardiology service will adjust meds. Review of Systems - Review of Systems Cardiovascular: negative: chest pain, palpitations, orthopnea, paroxysmal nocturnal dyspnea, edema, light headedness Gastrointestinal: Constipation. negative: Nausea, Vomiting, Abdominal Pain, Diarrhea, Melena, Hematochezia - Medications/Allergies Allergies/Adverse Reactions: Allergies Allergy/AdvReac Type Severity Reaction Status Date / Time No Known Allergies Allergy Verified 06/22/17 12:41 Medications: Current Medications Acetaminophen (Tylenol) 650 mg PO Q4H PRN PRN Reason: BENEDICT/ T > 101F; Mild Pain (1-3) Hydrocodone Bitart/Acetaminophen ([place] 10/325) 1 tab PO Q4H PRN PRN Reason: Pain (1-3) Last Admin: 07/06/17 20:40 Dose: 1 tab Hydrocodone Bitart/Acetaminophen ([place] 10/325) 2 tab PO Q4H PRN PRN Reason: PAIN (4-6) Last Admin: 07/06/17 03:09 Dose: 2 tab Artificial Tears (Tears Renewed 15ml Bottle) 0 drop EA EYE PRN PRN PRN Reason: DRY EYE Bisacodyl (Dulcolax) 10 mg [place] DAILYPRN PRN PRN Reason: Constipation Bisacodyl (Dulcolax) 10 mg PO DAILYPRN PRN PRN Reason: Constipation Bisacodyl (Dulcolax) 10 mg PO ONE [facility] Coenzyme Q10 (Coenzyme Q10) 50 mg PO DAILY [facility] Last Admin: 07/09/17 08:31 Dose: 50 mg Diltiazem HCl (Cardizem Cd) 240 mg PO DAILY [facility] Last Admin: 07/09/17 08:31 Dose: 240 mg Diphenhydramine HCl (Benadryl) 25 mg PO Q6H PRN PRN Reason: Itching Enoxaparin Sodium (Lovenox) 80 mg [place] 0900,2100 [facility] Last Admin: 07/09/17 08:31 Dose: 80 mg Fentanyl (Sublimaze) 50 mcg IV Q1H PRN PRN Reason: Moderate to Severe Pain (6-10) Ferrous Gluconate (Fergon) 324 mg PO BID [facility] Last Admin: 07/09/17 08:31 Dose: 324 mg Ropivacaine 250 ml/ Device 250 mls @ 0 mls/hr NERVE BLCK INF [facility] PRN Reason: As Directed Last Admin: 07/08/17 15:56 Dose: 250 mls Sodium Chloride (Normal Saline 0.9%) 1,000 mls @ 100 mls/hr IV .Q10H [facility] Last Admin: 07/09/17 05:41 Dose: Not Given Diltiazem HCl 125 mg/Miscellaneous Medication 1 each/ Sodium Chloride 125 mls @ 5 mls/hr IVPB INF [facility]; As Directed PRN Reason: Protocol Last Admin: 07/08/17 20:44 Dose: 125 mls Iron/Minerals/Multivitamins (Theragran M) 1 tab PO DAILY [facility] Last Admin: 07/09/17 08:31 Dose: 1 tab Melatonin (Melatonin) 3 mg PO HS PRN PRN Reason: Insomnia Ondansetron HCl (Zofran) 4 mg IVP Q6H PRN PRN Reason: Nausea/Vomiting Last Admin: 07/09/17 01:04 Dose: 4 mg Promethazine HCl (Phenergan) 12.5 mg IM Q4H PRN PRN Reason: Nausea Promethazine HCl (Phenergan) 12.5 mg SLOW IVP Q4H PRN PRN Reason: Nausea/Vomiting Senna/Docusate Sodium (Senokot S) 2 tab PO BID [facility] Last Admin: 07/09/17 08:31 Dose: 2 tab Sodium Biphosphate/Sodium Phosphate (Fleet Enema) 133 ml HI ONE PRN PRN Reason: Constipation Stop: 07/09/17 21:00 Sodium Chloride (Flush - Normal Saline) 10 ml IVF PRN PRN PRN Reason: Saline Flush Tamsulosin HCl (Flomax) 0.4 mg PO HS [facility] Last Admin: 07/08/17 20:45 Dose: 0.4 mg Tramadol HCl (Ultram) 50 mg PO Q6H PRN PRN Reason: Mild Pain (1-3) Tramadol HCl (Ultram) 100 mg PO Q6H PRN PRN Reason: Moderate Pain 4-6 Zolpidem Tartrate (Ambien) 5 mg PO HSPRN PRN PRN Reason: Insomnia Last Admin: 07/09/17 01:07 Dose: 5 mg
[2017-07-09] MEDS ORDERED: Bisacodyl 5 MG TAB PO SCH (12:30)
[2017-07-09] MEDS: HYDROcodone/Acetaminophen 10/325 mg Tablet PO PRN (14:02)
[2017-07-09] MEDS: Tamsulosin HCl 0.4 MG CAP PO SCH (21:14)
[2017-07-10] MEDS: Diltiazem HCl 125 MG, Admixture Fee 1 EACH in Sodium Chloride 0.9% 100 ML IVPB SCH (02:49)
[2017-07-10] MEDS: Ondansetron HCl/PF 4 MG/2 ML Vial IVP PRN ×2 (02:51→10:03)
[2017-07-10] MEDS: Sodium Chloride 0.9% 1,000 ML IV SCH ×2 (03:31→14:40)
[2017-07-10] MEDS: Enoxaparin Sodium 80 MG/0.8 ML SYRINGE SC SCH ×2 (09:58→20:10)
[2017-07-10] MEDS: HYDROcodone/Acetaminophen 10/325 mg Tablet PO PRN (09:58)
[2017-07-10] MEDS: Ubidecarenone 50 MG CAP PO SCH (10:00)
[2017-07-10] MEDS: Senokot S 8.6-50 MG TAB PO SCH ×2 (10:00→20:11)
[2017-07-10] MEDS: Multivitamin W/ Minerals 1 TAB PO SCH (10:01)
[2017-07-10] MEDS: Ferrous Gluconate 324 MG TAB PO SCH ×2 (10:01→20:10)
[2017-07-10] MEDS ORDERED: Magnesium Citrate 300 ML BOT PO SCH (11:15)
--- NOTE | 2017-07-10 11:23 | PDOC.PN ---
- Subjective Encounter Start Date: 07/10/17 Encounter Start Time: 07:20 Pt seen for followup re: constipation. Had Dulcolax, no bowel movement yet. No fevers or chills. - Objective MAR Reviewed: Yes Vital Signs & Weight: Vital Signs (12 hours) Temp Pulse Resp BP Pulse Ox 07/10/17 07:31 98.7 F 97 18 126/72 97 07/10/17 04:00 98.0 F 111 H 20 110/82 96 Weight Admit Weight 175 lb Weight 182 lb 8 oz I&O: 07/09/17 07/10/17 07/11/17 06:59 06:59 06:59 Intake Total 1450 1390 Output Total 1020 1260 Balance 430 130 Result Diagrams: 07/08/17 21:35 07/08/17 21:35 EKG Reviewed by me: Yes (Tele: edy dover) Phys Exam - Physical Examination Constitutional: NAD HEENT: moist MMs Neck: supple Respiratory: clear to auscultation bilateral Cardiovascular: irregular Gastrointestinal: soft Neurological: moves all 4 limbs Psychiatric: normal affect Skin: no rash Dx/Plan (1) Constipation Code(s): K59.00 - CONSTIPATION, UNSPECIFIED Status: Acute (2) Atrial fibrillation with RVR Code(s): I48.91 - UNSPECIFIED ATRIAL FIBRILLATION Status: Acute (3) HTN (hypertension) Code(s): I10 - ESSENTIAL (PRIMARY) HYPERTENSION Status: Chronic (4) Arthritis Code(s): M19.90 - UNSPECIFIED OSTEOARTHRITIS, UNSPECIFIED SITE Status: Chronic - Plan plan discussed w/ family, PT/OT, out of bed/ambulate * . Trial magnesium citrate. PRN Fleet enema. Monitor vital signs, titrate antihypertensives. Still on cardizem drip. Review of Systems - Review of Systems Respiratory: negative: Cough, Dry, Shortness of Breath, Hemoptysis, SOB with Excertion, Pleuritic Pain, Sputum, Wheezing Cardiovascular: negative: chest pain, palpitations, orthopnea, paroxysmal nocturnal dyspnea, edema, light headedness Gastrointestinal: Constipation. negative: Nausea, Vomiting, Abdominal Pain, Diarrhea, Melena, Hematochezia - Medications/Allergies Allergies/Adverse Reactions: Allergies Allergy/AdvReac Type Severity Reaction Status Date / Time No Known Allergies Allergy Verified 06/22/17 12:41 Medications: Current Medications Acetaminophen (Tylenol) 650 mg PO Q4H PRN PRN Reason: BENEDICT/ T > 101F; Mild Pain (1-3) Hydrocodone Bitart/Acetaminophen ([place] 10/325) 1 tab PO Q4H PRN PRN Reason: Pain (1-3) Last Admin: 07/10/17 09:58 Dose: 1 tab Hydrocodone Bitart/Acetaminophen ([place] 10/325) 2 tab PO Q4H PRN PRN Reason: PAIN (4-6) Last Admin: 07/06/17 03:09 Dose: 2 tab Artificial Tears (Tears Renewed 15ml Bottle) 0 drop EA EYE PRN PRN PRN Reason: DRY EYE Bisacodyl (Dulcolax) 10 mg [place] DAILYPRN PRN PRN Reason: Constipation Bisacodyl (Dulcolax) 10 mg PO DAILYPRN PRN PRN Reason: Constipation Last Admin: 07/10/17 05:35 Dose: 10 mg Coenzyme Q10 (Coenzyme Q10) 50 mg PO DAILY [facility] Last Admin: 07/10/17 10:00 Dose: 50 mg Diltiazem HCl (Cardizem Cd) 360 mg PO DAILY [facility] Last Admin: 07/10/17 09:57 Dose: 360 mg Diphenhydramine HCl (Benadryl) 25 mg PO Q6H PRN PRN Reason: Itching Enoxaparin Sodium (Lovenox) 80 mg [place] 0900,2100 [facility] Last Admin: 07/10/17 09:58 Dose: 80 mg Fentanyl (Sublimaze) 50 mcg IV Q1H PRN PRN Reason: Moderate to Severe Pain (6-10) Ferrous Gluconate (Fergon) 324 mg PO BID [facility] Last Admin: 07/10/17 10:01 Dose: 324 mg Ropivacaine 250 ml/ Device 250 mls @ 0 mls/hr NERVE BLCK INF [facility] PRN Reason: As Directed Last Admin: 07/08/17 15:56 Dose: 250 mls Sodium Chloride (Normal Saline 0.9%) 1,000 mls @ 100 mls/hr IV .Q10H [facility] Last Admin: 07/10/17 03:31 Dose: Not Given Diltiazem HCl 125 mg/Miscellaneous Medication 1 each/ Sodium Chloride 125 mls @ 5 mls/hr IVPB INF [facility]; As Directed PRN Reason: Protocol Last Admin: 07/10/17 02:49 Dose: 125 mls Iron/Minerals/Multivitamins (Theragran M) 1 tab PO DAILY [facility] Last Admin: 07/10/17 10:01 Dose: 1 tab Magnesium Citrate (Citrate Of Magnesia 300 Ml Bot) 300 ml PO NOW [facility] Stop: 07/10/17 13:15 Melatonin (Melatonin) 3 mg PO HS PRN PRN Reason: Insomnia Last Admin: 07/09/17 21:14 Dose: 3 mg Ondansetron HCl (Zofran) 4 mg IVP Q6H PRN PRN Reason: Nausea/Vomiting Last Admin: 07/10/17 10:03 Dose: 4 mg Promethazine HCl (Phenergan) 12.5 mg IM Q4H PRN PRN Reason: Nausea Promethazine HCl (Phenergan) 12.5 mg SLOW IVP Q4H PRN PRN Reason: Nausea/Vomiting Senna/Docusate Sodium (Senokot S) 2 tab PO BID [facility] Last Admin: 07/10/17 10:00 Dose: 2 tab Sodium Chloride (Flush - Normal Saline) 10 ml IVF PRN PRN PRN Reason: Saline Flush Tamsulosin HCl (Flomax) 0.4 mg PO HS [facility] Last Admin: 07/09/17 21:14 Dose: 0.4 mg Tramadol HCl (Ultram) 50 mg PO Q6H PRN PRN Reason: Mild Pain (1-3) Tramadol HCl (Ultram) 100 mg PO Q6H PRN PRN Reason: Moderate Pain 4-6 Zolpidem Tartrate (Ambien) 5 mg PO HSPRN PRN PRN Reason: Insomnia Last Admin: 07/09/17 01:07 Dose: 5 mg
[2017-07-10] MEDS ORDERED: Fleet Enema 133 ML BOT PR PRN (11:26)
--- NOTE | 2017-07-10 13:18 | PDOC.CTH ---
<Michaela Medina - Last Filed: 07/10/17 17:21> Cardiology Progress Note - Objective Vital Signs Temp Pulse Pulse Pulse Resp BP BP 07/10/17 17:02 152/69 H 07/10/17 15:47 97.9 F 105 H 16 07/10/17 12:49 97.7 F 106 H 16 07/10/17 09:26 94 102 H 111/71 07/10/17 07:31 98.7 F 97 18 BP BP Pulse Ox 07/10/17 17:02 07/10/17 15:47 131/64 96 07/10/17 12:49 133/66 94 L 07/10/17 09:26 131/80 07/10/17 07:31 126/72 97 Admit Weight 175 lb Weight 182 lb 8 oz 07/09/17 07/10/17 07/11/17 06:59 06:59 06:59 Intake Total 1450 1390 Output Total 1020 1260 Balance 430 130 - Labs Result Diagrams: 07/08/17 21:35 07/08/17 21:35 - Assessment/Plan Pt. seen and eval. by me. He is complaining of constipation and abd. bloating. He was given medication tis AM but no results yet. He remains in Afib. he may need early cardioversion if the HR continues to be elevated. I agree with the A/ P by the [employer]. <Avis Hernandez - Last Filed: 07/10/17 17:28> Cardiology Progress Note - Subjective The pt seen and examined. No overnight events. No cardiac complaints. He complains of chronic fatigue and GASTON when he walks to bathroom. - Objective Vital Signs Temp Pulse Pulse Pulse Resp BP BP 07/10/17 12:49 97.7 F 106 H 16 07/10/17 09:26 94 102 H 111/71 131/80 07/10/17 07:31 98.7 F 97 18 07/10/17 04:00 98.0 F 111 H 20 BP Pulse Ox 07/10/17 12:49 133/66 94 L 07/10/17 09:26 18 07:31 126/72 97 07/10/17 04:00 110/82 96 Admit Weight 175 lb Weight 182 lb 8 oz 07/09/17 07/10/17 07/11/17 06:59 06:59 06:59 Intake Total 1450 1390 Output Total 1020 1260 Balance 430 130 - Physical Examination General/Neuro: alert & oriented x3 Neck: no JVD present Lungs: other: (diminished at bases) Heart: other: (irregular) Abdomen: soft Extremities: other: (No edema) - Telemetry Telemetry Rhythm: Afib with HR 90-130s - Labs Result Diagrams: 07/08/17 21:35 07/08/17 21:35 - Assessment/Plan 1. Afib with RVR - Remain in Afib with HR 100-130s with Diltiazem 360mg PO daily and 5 mg/h IV. On Lovenox BID. Echo result is pending at this time. 2. HTN - Start Coreg 6.25mg BID; cont. to monitor 3. S/p Lt TKR - stable; managed by surgeon. MAGNOLIA reviewed * Per medical record, the pt was in SR on 06/28/17. Review of Systems - Review of Systems Constitutional: reports: weakness EENTM: reports: no symptoms reported Respiratory: reports: see HPI Cardiac (ROS): reports: no symptoms reported ABD/GI: reports: see HPI Musculoskeletal: reports: see HPI Skin: reports: see HPI
[2017-07-10] MEDS: Carvedilol 6.25 MG TAB PO SCH (17:02)
[2017-07-10] MEDS: Tamsulosin HCl 0.4 MG CAP PO SCH (20:11)
[2017-07-10 21:04] LABS: Hemoglobin 11.9 g/dL (14.0-18.0); Platelet Count 191 thou/uL (130-400)
[2017-07-11] MEDS: Sodium Chloride 0.9% 1,000 ML IV SCH ×2 (00:58→11:02)
[2017-07-11] MEDS: Zolpidem Tartrate 5 MG TAB PO PRN (02:32)
[2017-07-11] MEDS: Diltiazem HCl 125 MG, Admixture Fee 1 EACH in Sodium Chloride 0.9% 100 ML IVPB SCH (03:34)
[2017-07-11 09:01] LABS: #Eosinphils 0.2 thou/uL (0.0-0.7); #Lymphocytes 0.7 thou/uL (1.20-3.40); #Monocytes 0.8 thou/uL (0.11-0.59); %Eosinophils 2.3 % (0.0-10.0); %Lymphocytes 8.7 % (21.0-51.0); %Monocytes 10.3 % (0.0-10.0); %Neutrophils 78.7 % (42.0-75.0); Hemoglobin 12.1 g/dL (14.0-18.0); Mean Corpuscular HGB CONC 33.2 g/dL (32.0-36.0); Mean Corpuscular Hemoglobin 32.3 pg (27.0-31.0); Mean Corpuscular Volume 97.5 fl (80.0-94.0); Mean Platelet Volume 6.9 fL (7.4-10.4); Platelet Count 213 thou/uL (130-400); RBC Distribution Width 12.5 % (11.5-14.5); Red Blood Cell (RBC) Count 3.74 mill/uL (4.70-6.10); White Blood Cell (WBC) Count 7.7 thou/uL (4.8-10.8)
[2017-07-11] MEDS: Ubidecarenone 50 MG CAP PO SCH (09:11)
[2017-07-11] MEDS: Multivitamin W/ Minerals 1 TAB PO SCH (09:11)
[2017-07-11] MEDS: HYDROcodone/Acetaminophen 10/325 mg Tablet PO PRN ×2 (09:12→16:54)
[2017-07-11] MEDS: Senokot S 8.6-50 MG TAB PO SCH ×2 (09:15→21:30)
[2017-07-11] MEDS: Ferrous Gluconate 324 MG TAB PO SCH ×2 (09:15→21:30)
[2017-07-11] MEDS: Enoxaparin Sodium 80 MG/0.8 ML SYRINGE SC SCH ×2 (09:16→21:31)
[2017-07-11 09:20] LABS: Anion Gap 11 mmol/L (10-20); BUN (Urea Nitrogen) 22 mg/dL (8.4-25.7); Calc. Creatinine Clearance 75 mL/min (70-130); Calcium 8.2 mg/dL (7.8-10.44); Carbon Dioxide 26 mmol/L (23-31); Chloride 103 mmol/L (98-107); Estimated GFR-MDRD 81; Glucose 136 mg/dL (83-110); Potassium 3.3 mmol/L (3.5-5.1); Sodium 137 mmol/L (136-145)
[2017-07-11] MEDS ORDERED: Carvedilol 6.25 MG TAB PO SCH (09:30)
--- NOTE | 2017-07-11 09:40 | PDOC.CTH ---
<Al Hernandezoko - Last Filed: 07/11/17 12:33> Cardiology Progress Note - Subjective The pt seen and examined. No overnight events. No cardiac complaints. He walked with PT yesterday. - Objective Vital Signs Temp Pulse Resp BP Pulse Ox 07/11/17 07:20 97.7 F 91 18 144/71 H 96 07/11/17 04:00 97.6 F 81 20 144/64 H 96 Admit Weight 175 lb Weight 180 lb 14.4 oz 07/10/17 07/11/17 07/12/17 06:59 06:59 06:59 Intake Total 1390 2000 Output Total 1260 400 Balance 130 1600 - Physical Examination General/Neuro: alert & oriented x3 Neck: no JVD present Lungs: CTA Heart: RRR Abdomen: soft Extremities: other: (JOSH on RLE; Dressing on Lt knee) - Telemetry Telemetry Rhythm: SR 80-90s - Labs Result Diagrams: 07/11/17 08:40 07/11/17 08:40 - Assessment/Plan 1. Afib with RVR - Converted back to SR at 2345, 07/10/17. On Coreg 6.25mg BID, Lovenox BID, Diltiazem 360mg PO daily and 5 mg/h IV. Increase Coreg to 12.5mg BID. D/c Diltiazem drip. Echo result is pending. 2. HTN - Increase Coreg from 6.25mg to 12.5mg BID; cont. to monitor 3. S/p Lt TKR - stable; managed by surgeon. 4. Constipation - resolved. MAR reviewed * Per medical record, the pt was in SR on 06/28/17. * Kcl 40 mEq x1 for K level 3.3 today * Stop Diltiazem drip Review of Systems - Review of Systems Constitutional: reports: no symptoms reported EENTM: reports: no symptoms reported Respiratory: reports: see HPI Cardiac (ROS): reports: no symptoms reported ABD/GI: reports: no symptoms reported : reports: no symptoms reported Musculoskeletal: reports: no symptoms reported <Michaela Medina - Last Filed: 07/15/17 21:55> Cardiology Progress Note - Objective Admit Weight 175 lb Weight 182 lb 14.4 oz - Labs Result Diagrams: 07/11/17 08:40 07/11/17 08:40 - Assessment/Plan Pt. seen and eval. by me.I agree with the A/P by the [employer].
[2017-07-11] MEDS: Carvedilol 6.25 MG TAB PO SCH ×2 (09:54→16:53)
[2017-07-11] MEDS ORDERED: Potassium Chloride 20 MEQ TAB PO SCH (10:00)
--- NOTE | 2017-07-11 10:41 | PDOC.PN ---
- Subjective Encounter Start Date: 07/11/17 Encounter Start Time: 07:20 -: old records requested/rev Patient seen and examined. No new complaints. No overnight events - Objective MAR Reviewed: Yes Vital Signs & Weight: Vital Signs (12 hours) Temp Pulse Resp BP BP Pulse Ox 07/11/17 09:54 152/69 H 07/11/17 07:20 97.7 F 91 18 144/71 H 96 07/11/17 04:00 97.6 F 81 20 144/64 H 96 Weight Admit Weight 175 lb Weight 180 lb 14.4 oz I&O: 07/10/17 07/11/17 07/12/17 06:59 06:59 06:59 Intake Total 1390 2000 Output Total 1260 400 Balance 130 1600 Result Diagrams: 07/11/17 08:40 07/11/17 08:40 EKG Reviewed by me: Yes (afib rate controlled) Phys Exam - Physical Examination Constitutional: NAD HEENT: PERRLA, moist MMs, sclera anicteric Neck: no JVD, supple Respiratory: no wheezing, no rales, no rhonchi Cardiovascular: no significant murmur, irregular Gastrointestinal: soft, non-tender, no distention, positive bowel sounds Musculoskeletal: no edema, pulses present Neurological: non-focal, normal sensation, moves all 4 limbs Lymphatic: no nodes Psychiatric: normal affect, A&O x 3 Skin: no rash, normal turgor Dx/Plan (1) Atrial fibrillation with RVR Code(s): I48.91 - UNSPECIFIED ATRIAL FIBRILLATION Status: Acute (2) Constipation Code(s): K59.00 - CONSTIPATION, UNSPECIFIED Status: Acute (3) Hypokalemia Code(s): E87.6 - HYPOKALEMIA Status: Acute (4) Status post total left knee replacement Code(s): Z96.652 - PRESENCE OF LEFT ARTIFICIAL KNEE JOINT Status: Acute (5) Arthritis Code(s): M19.90 - UNSPECIFIED OSTEOARTHRITIS, UNSPECIFIED SITE Status: Chronic (6) HTN (hypertension) Code(s): I10 - ESSENTIAL (PRIMARY) HYPERTENSION Status: Chronic - Plan cont current plan of care, PT/OT * coreg dose increased * replace potassium * rate controlled * possible cardizem drip DC later today * continue oral cardizem * continue lovenox * on discharge Elliquis * medication reviewed as below * symptomatic treatment * will monitor. Review of Systems - Review of Systems ENT: negative: Ear Pain, Ear Discharge, Nose Pain, Nose Discharge, Nose Congestion, Mouth Pain, Mouth Swelling, Throat Pain, Throat Swelling, Other Respiratory: negative: Cough, Dry, Shortness of Breath, Hemoptysis, SOB with Excertion, Pleuritic Pain, Sputum, Wheezing Cardiovascular: negative: chest pain, palpitations, orthopnea, paroxysmal nocturnal dyspnea, edema, light headedness, other Gastrointestinal: negative: Nausea, Vomiting, Abdominal Pain, Diarrhea, Constipation, Melena, Hematochezia, Other Genitourinary: negative: Dysuria, Frequency, Incontinence, Hematuria, Retention , Other Musculoskeletal: negative: Neck Pain, Shoulder Pain, Arm Pain, Back Pain, Hand Pain, Leg Pain, Foot Pain, Other Skin: negative: Rash, Lesions, Nacho, Bruising, Other - Medications/Allergies Allergies/Adverse Reactions: Allergies Allergy/AdvReac Type Severity Reaction Status Date / Time No Known Allergies Allergy Verified 06/22/17 12:41 Medications: Current Medications Acetaminophen (Tylenol) 650 mg PO Q4H PRN PRN Reason: BENEDICT/ T > 101F; Mild Pain (1-3) Hydrocodone Bitart/Acetaminophen ([place] 10/325) 1 tab PO Q4H PRN PRN Reason: Pain (1-3) Last Admin: 07/11/17 09:12 Dose: 1 tab Hydrocodone Bitart/Acetaminophen ([place] 10/325) 2 tab PO Q4H PRN PRN Reason: PAIN (4-6) Last Admin: 07/06/17 03:09 Dose: 2 tab Artificial Tears (Tears Renewed 15ml Bottle) 0 drop EA EYE PRN PRN PRN Reason: DRY EYE Bisacodyl (Dulcolax) 10 mg [place] DAILYPRN PRN PRN Reason: Constipation Bisacodyl (Dulcolax) 10 mg PO DAILYPRN PRN PRN Reason: Constipation Last Admin: 07/10/17 05:35 Dose: 10 mg Carvedilol (Coreg) 6.25 mg PO BID-[facility] Stop: 07/11/17 11:30 Last Admin: 07/11/17 09:54 Dose: 6.25 mg Carvedilol (Coreg) 12.5 mg PO BID-[facility] Carvedilol (Coreg) 6.25 mg PO NOW [facility] Stop: 07/11/17 11:30 Last Admin: 07/11/17 09:54 Dose: 6.25 mg Coenzyme Q10 (Coenzyme Q10) 50 mg PO DAILY [facility] Last Admin: 07/11/17 09:11 Dose: 50 mg Diltiazem HCl (Cardizem Cd) 360 mg PO DAILY [facility] Last Admin: 07/11/17 09:11 Dose: 360 mg Diphenhydramine HCl (Benadryl) 25 mg PO Q6H PRN PRN Reason: Itching Enoxaparin Sodium (Lovenox) 80 mg SC 0900,2100 [facility] Last Admin: 07/11/17 09:16 Dose: 80 mg Fentanyl (Sublimaze) 50 mcg IV Q1H PRN PRN Reason: Moderate to Severe Pain (6-10) Ferrous Gluconate (Fergon) 324 mg PO BID [facility] Last Admin: 07/11/17 09:15 Dose: 324 mg Ropivacaine 250 ml/ Device 250 mls @ 0 mls/hr NERVE BLCK INF [facility] PRN Reason: As Directed Last Admin: 07/08/17 15:56 Dose: 250 mls Diltiazem HCl 125 mg/Miscellaneous Medication 1 each/ Sodium Chloride 125 mls @ 5 mls/hr IVPB INF [facility]; As Directed PRN Reason: Protocol Last Admin: 07/11/17 03:34 Dose: 125 mls Iron/Minerals/Multivitamins (Theragran M) 1 tab PO DAILY [facility] Last Admin: 07/11/17 09:11 Dose: 1 tab Melatonin (Melatonin) 3 mg PO HS PRN PRN Reason: Insomnia Last Admin: 07/09/17 21:14 Dose: 3 mg Ondansetron HCl (Zofran) 4 mg IVP Q6H PRN PRN Reason: Nausea/Vomiting Last Admin: 07/10/17 10:03 Dose: 4 mg Potassium Chloride (K-Dur) 40 meq PO 1000 [facility] Stop: 07/11/17 12:00 Last Admin: 07/11/17 09:55 Dose: 40 meq Promethazine HCl (Phenergan) 12.5 mg IM Q4H PRN PRN Reason: Nausea Promethazine HCl (Phenergan) 12.5 mg SLOW IVP Q4H PRN PRN Reason: Nausea/Vomiting Senna/Docusate Sodium (Senokot S) 2 tab PO BID [facility] Last Admin: 07/11/17 09:15 Dose: 2 tab Sodium Biphosphate/Sodium Phosphate (Fleet Enema) 133 ml [place] DAILY PRN PRN Reason: constipation Sodium Chloride (Flush - Normal Saline) 10 ml IVF PRN PRN PRN Reason: Saline Flush Tamsulosin HCl (Flomax) 0.4 mg PO HS [facility] Last Admin: 07/10/17 20:11 Dose: 0.4 mg Tramadol HCl (Ultram) 50 mg PO Q6H PRN PRN Reason: Mild Pain (1-3) Tramadol HCl (Ultram) 100 mg PO Q6H PRN PRN Reason: Moderate Pain 4-6 Zolpidem Tartrate (Ambien) 5 mg PO HSPRN PRN PRN Reason: Insomnia Last Admin: 07/11/17 02:32 Dose: 5 mg
[2017-07-11] MEDS: Tamsulosin HCl 0.4 MG CAP PO SCH (21:31)
[2017-07-12] MEDS: HYDROcodone/Acetaminophen 10/325 mg Tablet PO PRN (06:16)
[2017-07-12] MEDS ORDERED: Apixaban 5 MG TAB PO SCH (09:00)
--- NOTE | 2017-07-12 10:07 | PDOC.PN ---
- Subjective Encounter Start Date: 07/12/17 Encounter Start Time: 07:30 Patient seen and examined. No new complaints. No overnight events - Objective MAR Reviewed: Yes Vital Signs & Weight: Vital Signs (12 hours) Temp Pulse Resp BP Pulse Ox 07/12/17 07:44 97.7 F 85 16 136/69 94 L 07/12/17 04:00 98.5 F 84 16 143/67 H 95 Weight Admit Weight 175 lb Weight 182 lb 14.4 oz I&O: 07/11/17 07/12/17 07/13/17 06:59 06:59 06:59 Intake Total 1999 720 Output Total 400 700 Balance 1600 20 Result Diagrams: 07/11/17 08:40 07/11/17 08:40 EKG Reviewed by me: Yes Phys Exam - Physical Examination Constitutional: NAD HEENT: PERRLA, moist MMs, sclera anicteric Neck: no JVD, supple Respiratory: no wheezing, no rales, no rhonchi Cardiovascular: no significant murmur, irregular Gastrointestinal: soft, non-tender, no distention, positive bowel sounds Musculoskeletal: no edema, pulses present Neurological: non-focal, normal sensation, moves all 4 limbs Psychiatric: normal affect, A&O x 3 Skin: no rash, normal turgor Dx/Plan (1) Atrial fibrillation with RVR Code(s): I48.91 - UNSPECIFIED ATRIAL FIBRILLATION Status: Acute (2) Constipation Code(s): K59.00 - CONSTIPATION, UNSPECIFIED Status: Acute (3) Hypokalemia Code(s): E87.6 - HYPOKALEMIA Status: Acute (4) Status post total left knee replacement Code(s): Z96.652 - PRESENCE OF LEFT ARTIFICIAL KNEE JOINT Status: Acute (5) Arthritis Code(s): M19.90 - UNSPECIFIED OSTEOARTHRITIS, UNSPECIFIED SITE Status: Chronic (6) HTN (hypertension) Code(s): I10 - ESSENTIAL (PRIMARY) HYPERTENSION Status: Chronic - Plan cont current plan of care * medication reviewed as below * Symptomatic treatment * see discharge niurka for details. Review of Systems - Review of Systems ENT: negative: Ear Pain, Ear Discharge, Nose Pain, Nose Discharge, Nose Congestion, Mouth Pain, Mouth Swelling, Throat Pain, Throat Swelling, Other Respiratory: negative: Cough, Dry, Shortness of Breath, Hemoptysis, SOB with Excertion, Pleuritic Pain, Sputum, Wheezing Cardiovascular: negative: chest pain, palpitations, orthopnea, paroxysmal nocturnal dyspnea, edema, light headedness, other Gastrointestinal: negative: Nausea, Vomiting, Abdominal Pain, Diarrhea, Constipation, Melena, Hematochezia, Other Genitourinary: negative: Dysuria, Frequency, Incontinence, Hematuria, Retention , Other Musculoskeletal: negative: Neck Pain, Shoulder Pain, Arm Pain, Back Pain, Hand Pain, Leg Pain, Foot Pain, Other Skin: negative: Rash, Lesions, Nacho, Bruising, Other - Medications/Allergies Allergies/Adverse Reactions: Allergies Allergy/AdvReac Type Severity Reaction Status Date / Time No Known Allergies Allergy Verified 06/22/17 12:41 Medications: Current Medications Acetaminophen (Tylenol) 650 mg PO Q4H PRN PRN Reason: BENEDICT/ T > 101F; Mild Pain (1-3) Hydrocodone Bitart/Acetaminophen ([place] 10/325) 1 tab PO Q4H PRN PRN Reason: Pain (1-3) Last Admin: 07/12/17 06:16 Dose: 1 tab Hydrocodone Bitart/Acetaminophen ([place] 10/325) 2 tab PO Q4H PRN PRN Reason: PAIN (4-6) Last Admin: 07/06/17 03:09 Dose: 2 tab Apixaban (Eliquis) 5 mg PO BID [facility] Artificial Tears (Tears Renewed 15ml Bottle) 0 drop EA EYE PRN PRN PRN Reason: DRY EYE Bisacodyl (Dulcolax) 10 mg [place] DAILYPRN PRN PRN Reason: Constipation Bisacodyl (Dulcolax) 10 mg PO DAILYPRN PRN PRN Reason: Constipation Last Admin: 07/10/17 05:35 Dose: 10 mg Carvedilol (Coreg) 12.5 mg PO BID-[facility] Last Admin: 07/11/17 16:53 Dose: 12.5 mg Coenzyme Q10 (Coenzyme Q10) 50 mg PO DAILY [facility] Last Admin: 07/11/17 09:11 Dose: 50 mg Diphenhydramine HCl (Benadryl) 25 mg PO Q6H PRN PRN Reason: Itching Fentanyl (Sublimaze) 50 mcg IV Q1H PRN PRN Reason: Moderate to Severe Pain (6-10) Ferrous Gluconate (Fergon) 324 mg PO BID [facility] Last Admin: 07/11/17 21:30 Dose: 324 mg Ropivacaine 250 ml/ Device 250 mls @ 0 mls/hr NERVE BLCK INF [facility] PRN Reason: As Directed Last Admin: 07/08/17 15:56 Dose: 250 mls Iron/Minerals/Multivitamins (Theragran M) 1 tab PO DAILY [facility] Last Admin: 07/11/17 09:11 Dose: 1 tab Melatonin (Melatonin) 3 mg PO HS PRN PRN Reason: Insomnia Last Admin: 07/09/17 21:14 Dose: 3 mg Ondansetron HCl (Zofran) 4 mg IVP Q6H PRN PRN Reason: Nausea/Vomiting Last Admin: 07/10/17 10:03 Dose: 4 mg Promethazine HCl (Phenergan) 12.5 mg IM Q4H PRN PRN Reason: Nausea Promethazine HCl (Phenergan) 12.5 mg SLOW IVP Q4H PRN PRN Reason: Nausea/Vomiting Senna/Docusate Sodium (Senokot S) 2 tab PO BID [facility] Last Admin: 07/11/17 21:30 Dose: 2 tab Sodium Biphosphate/Sodium Phosphate (Fleet Enema) 133 ml [place] DAILY PRN PRN Reason: constipation Sodium Chloride (Flush - Normal Saline) 10 ml IVF PRN PRN PRN Reason: Saline Flush Tamsulosin HCl (Flomax) 0.4 mg PO HS [facility] Last Admin: 07/11/17 21:31 Dose: 0.4 mg Tramadol HCl (Ultram) 50 mg PO Q6H PRN PRN Reason: Mild Pain (1-3) Tramadol HCl (Ultram) 100 mg PO Q6H PRN PRN Reason: Moderate Pain 4-6 Zolpidem Tartrate (Ambien) 5 mg PO HSPRN PRN PRN Reason: Insomnia Last Admin: 07/11/17 02:32 Dose: 5 mg
[2017-07-12] MEDS: Carvedilol 6.25 MG TAB PO SCH (10:33)
[2017-07-12] MEDS: Ferrous Gluconate 324 MG TAB PO SCH (10:33)
[2017-07-12] MEDS: Multivitamin W/ Minerals 1 TAB PO SCH (10:33)
[2017-07-12] MEDS: Senokot S 8.6-50 MG TAB PO SCH (10:33)
[2017-07-12] MEDS: Ubidecarenone 50 MG CAP PO SCH (10:34)
--- NOTE | 2017-07-12 11:45 | DIS ---
DATE OF ADMISSION: 07/07/2017 DATE OF DISCHARGE: 07/12/2017 PRIMARY CARE PHYSICIAN: [facility] call admission. PRIMARY ATTENDING: Neal Vásquez M.D. DISCHARGE DISPOSITION: Home with home health. PRIMARY DISCHARGE DIAGNOSES: 1. Status post left total knee replacement. 2. Atrial fibrillation with rapid ventricular response. 3. Hypokalemia, corrected. 4. Constipation, improved. SECONDARY DISCHARGE DIAGNOSES: Hypertension, osteoarthritis. PRIMARY PROCEDURE/OPERATION: Left total knee replacement. RADIOLOGICAL INVESTIGATION: Knee x-ray and echocardiography. SIGNIFICANT LABORATORY DATA: WBC 7.7, hemoglobin 12.1, platelet 213. Sodium 137, potassium 3.3, BUN 22, creatinine 0.90, calcium 8.2. TSH 1.42. Cardiac enzymes negative. DISCHARGE MEDICATIONS: Eliquis 5 mg p.o. b.i.d., aspirin 81 mg p.o. daily, Coreg 12.5 mg p.o. b.i.d. , Cardizem CD 360 mg p.o. daily, ferrous gluconate 324 mg p.o. b.i.d., multivitamin 1 tablet p.o. james ly, Coenzyme Q10 50 mg p.o. daily. Pain medication will defer to primary team. CONTRAINDICATIONS: None. CODE STATUS: FULL CODE. INPATIENT CONSULTANTS: The patient was admitted by Dr. Vásquez. Hospitalist was consulted while in [facility]. Dr. Sam Villagomez was consulted for urinary retention. Dr. Saavedra was consulted for atr ial fibrillation with RVR. TEST RESULTS PENDING ON DISCHARGE: None. ALLERGIES: No known drug allergy. DISCHARGE PLAN: Post hospital, patient will follow up with Dr. Saavedra, Dr. Neal Vásquez and Dr. Rashad Villagomez as instructed. HOSPITAL COURSE: An 81-year-old male who was admitted by Dr. Vásquez for left total knee replacement w hich was done without any immediate complication, but subsequently patient developed urinary retentio n, required Giraldo catheterization and Dr. Vargas was consulted and he recommended to continue Flomax and remove catheter and voiding trial. The patient did not have any further retention while in hosp ital. His retention was related with his constipation and after correct treatment of constipation, sheela valdez was doing very well with urination. He developed atrial fibrillation with RVR and that is why he required transfer to telemetry floor. Claudio valdez consulted Cardiology and he was treated with Cardizem drip. Subsequently, Cardizem drip was discon tinued and Cardizem CD was started and he remained in atrial fibrillation, but rate was under control . The patient was requiring anticoagulation and that is why we started Eliquis therapy. While in [facility], he was given Lovenox. Cardiology cleared him for discharge. Primary team cleared him for discharge and he will follow up w ith the above-mentioned documentum consultant. All new medication prescriptions given to him. Pain medication will be given by primary team. The patient is seen and examined at bedside today. Please see my progress note from today for furthe r detail. The patient is medically stable for discharge today.
[2017-07-12 17:28] VITALS: BP 131/61; TEMP 97.6
== END 2017-07-12 12:11 | disposition home or self-care (01) | DRG 470 ==
LOC: SDC 06:11 → SJJU 11:54 → 2NO 07-07 05:38 → SDC 07-07 05:38
PROVIDERS: ADMIT Orthopaedic Surgery; ATTEND Orthopaedic Surgery
PROC: 0SRD0J9 Replacement of Left Knee Joint with Synthetic Substitute, Cemented, Open Approach (ICD-10-PCS; principal; 2017-07-05)
PROC: 3E0T3BZ Introduction of Anesthetic Agent into Peripheral Nerves and Plexi, Percutaneous Approach (ICD-10-PCS; 2017-07-05)
DX: M17.0 Bilateral primary osteoarthritis of knee (principal); I48.91 Unspecified atrial fibrillation; I44.7 Left bundle-branch block, unspecified; H35.30 Unspecified macular degeneration; M25.762 Osteophyte, left knee; I10 Essential (primary) hypertension; R42 Dizziness and giddiness; Z79.82 Long term (current) use of aspirin; Z79.899 Other long term (current) drug therapy; E87.6 Hypokalemia; K59.00 Constipation, unspecified; R33.9 Retention of urine, unspecified
CPT/HCPCS: 36415; 36416; 80048; 82565; 84443; 85014; 85018; 85025; 85027; 85049; 93005; 93010; 93306; C1713; C1776; G8978-GP-CK; G8978-GP-CL; G8979-GP-CJ; J1160; J1650; J2001; J2250; J2405; J2704; J2795; J3010; J3370; J7050; S0020

== ENCOUNTER 2017-08-16 15:59 | Inpatient (IN) | payer MEDICARE ==
[2017-08-16 17:13] LABS: ALT (SGPT) 18 U/L (8-55); AST (SGOT) 22 U/L (5-34); Albumin 4.3 g/dL (3.4-4.8); Alkaline Phosphatase 86 U/L (40-150); Anion Gap 14 mmol/L (10-20); BUN (Urea Nitrogen) 21 mg/dL (8.4-25.7); Bilirubin, Total 1.6 mg/dL (0.2-1.2); Calc. Creatinine Clearance 54 mL/min (70-130); Calcium 9.8 mg/dL (7.8-10.44); Carbon Dioxide 28 mmol/L (23-31); Chloride 102 mmol/L (98-107); Estimated GFR-MDRD 57; Globulin 2.8 g/dL (2.4-3.5); Glucose 104 mg/dL (83-110); Protein, Total 7.1 g/dL (5.8-8.1); Sodium 140 mmol/L (136-145)
--- NOTE | 2017-08-16 17:16 | RAD ---
CHEST ONE VIEW: HISTORY: Chronic congestive heart failure. COMPARISON: None. FINDINGS: Minimal blunting of both costophrenic angles, likely due to small effusion or atelectasis. The lungs are clear of any consolidation or masses. There is no pneumothorax or osseous abnormality. Upper n ormal cardiac silhouette. IMPRESSION: Blunting of both costophrenic angles, as above. POS: [facility]
[2017-08-16] MEDS: Apixaban 5 MG TAB PO SCH (21:37)
[2017-08-16] MEDS: Carvedilol 6.25 MG TAB PO SCH (21:37)
[2017-08-16] MEDS ORDERED: Melatonin 3 MG TAB PO PRN (22:16)
[2017-08-17] MEDS ORDERED: Furosemide 40 MG/4 ML VIAL SLOW IVP SCH (06:00)
[2017-08-17] MEDS: Losartan 25 MG TAB PO SCH (08:07)
[2017-08-17] MEDS: Potassium Chloride 20 MEQ TAB PO SCH (08:07)
[2017-08-17] MEDS: Apixaban 5 MG TAB PO SCH ×2 (08:07→21:13)
[2017-08-17] MEDS: Carvedilol 6.25 MG TAB PO SCH ×2 (08:07→21:13)
[2017-08-17] MEDS ORDERED: Metolazone 5 MG TAB PO SCH (09:00)
[2017-08-17] MEDS: Furosemide 100 MG/10 ML VIAL SLOW IVP SCH (13:47)
--- NOTE | 2017-08-17 13:50 | PRG ---
DATE OF SERVICE: 08/17/2017 SUBJECTIVE: Mr. Valdez is doing well. He states he feels much better. He has had significant diur esis. He continues to ambulate. He was able to lie flat last evening and rested comfortably. PHYSICAL EXAMINATION: VITAL SIGNS: Blood pressure 149/81, pulse 77, temperature 97.6. LUNGS: Much improvement in crackles noted bilaterally. CARDIAC: Regular rate and rhythm. ABDOMEN: Soft, nontender, nondistended. EXTREMITIES: 1+ pitting edema. PERTINENT LABORATORY DATA: Creatinine 1.22. IMPRESSION: 1. Acute on chronic systolic heart failure. 2. Left bundle branch block. RECOMMENDATIONS: At this point I would continue Lasix therapy. He was given 80 mg of Lasix IV this morning. We will decrease to 40 mg IV moving forward. We then likely change to p.o. tomorrow. We w ill keep other 1-2 days. The patient's LVEF is also diminished and would likely need a LifeVest. We will discuss with the patient.
[2017-08-17] MEDS ORDERED: Zolpidem Tartrate 5 MG TAB PO PRN (21:59)
[2017-08-18] MEDS: Furosemide 100 MG/10 ML VIAL SLOW IVP SCH ×2 (05:32→13:38)
[2017-08-18 06:07] LABS: Hemoglobin 13.2 g/dL (14.0-18.0); Platelet Count 162 thou/uL (130-400)
[2017-08-18] MEDS: Carvedilol 6.25 MG TAB PO SCH (08:08)
[2017-08-18] MEDS: Losartan 25 MG TAB PO SCH (08:08)
[2017-08-18] MEDS: Apixaban 5 MG TAB PO SCH ×2 (08:08→21:13)
[2017-08-18] MEDS: Potassium Chloride 20 MEQ TAB PO SCH (08:09)
[2017-08-18] MEDS ORDERED: Temazepam 15 MG CAP PO PRN ×2 (08:23→08:25)
--- NOTE | 2017-08-18 08:27 | PDOC.CTH ---
Cardiology Progress Note - Subjective patient with c/o lack of sleep at night. Breathing much better. Feels weak overall. Still with left LE edema and knee pain. - ROS shortness of breath - Objective Vital Signs Temp Pulse Resp BP BP Pulse Ox 08/18/17 07:38 97.7 F 91 16 137/72 94 L 08/18/17 04:21 97.6 F 78 18 135/76 94 L 08/18/17 00:09 97.5 F L 89 14 144/73 H 98 08/17/17 21:13 167/80 H Admit Weight 176 lb 14.4 oz Weight 181 lb 1.6 oz 08/17/17 08/18/17 08/19/17 06:59 06:59 06:59 Intake Total 200 1060 Output Total 550 3825 Balance -350 -1373 - Physical Examination General/Neuro: alert & oriented x3, NAD Neck: no JVD present Lungs: CTA, unlabored respirations Heart: RRR Extremities: other: (+1 left DREW. Nonpitting. Negative Serafin's) - Telemetry Telemetry Rhythm: SR. SVT 14 beats overnigh - Labs Result Diagrams: 08/18/17 05:19 08/18/17 05:19 - Assessment/Plan 1. Acute on chronic systolic CHF - good diuresis. Discussed LifeVest today. He wants to discuss further with [facility]. Will place order. BMP in AM. Possibly home tomorrow. 2. 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 Then down to 27% on recent stress. 3. Abnormal MPI - will need eventual cath 4. LBBB - no bradycardia 5. PSVT - increase Coreg 6. HTN - increase Coreg 7. Insomnia - Restoril 15mg PRN.
[2017-08-18] MEDS ORDERED: Carvedilol 6.25 MG TAB PO SCH (08:30)
[2017-08-18] MEDS: Carvedilol 25 MG TAB PO SCH ×2 (08:30→21:13)
[2017-08-18] MEDS ORDERED: Diabetic Tussin 200 MG/10 ML UDCUP PO PRN (20:43)
[2017-08-19] MEDS: Furosemide 100 MG/10 ML VIAL SLOW IVP SCH (06:01)
[2017-08-19 06:43] VITALS: BMI 26.4
[2017-08-19 07:54] LABS: Anion Gap 15 mmol/L (10-20); BUN (Urea Nitrogen) 40 mg/dL (8.4-25.7); Calc. Creatinine Clearance 34 mL/min (70-130); Calcium 9.3 mg/dL (7.8-10.44); Carbon Dioxide 29 mmol/L (23-31); Chloride 96 mmol/L (98-107); Estimated GFR-MDRD 33; Glucose 92 mg/dL (83-110); Sodium 137 mmol/L (136-145)
[2017-08-19 07:56] LABS: Potassium 2.8 mmol/L (3.5-5.1)
[2017-08-19] MEDS ORDERED: Potassium Chloride 20 MEQ TAB PO SCH (08:00)
[2017-08-19] MEDS: Losartan 25 MG TAB PO SCH (08:22)
[2017-08-19] MEDS: Apixaban 5 MG TAB PO SCH (08:23)
[2017-08-19] MEDS: Potassium Chloride 20 MEQ TAB PO SCH (08:23)
[2017-08-19] MEDS: Carvedilol 25 MG TAB PO SCH (08:23)
--- NOTE | 2017-08-19 12:06 | PDOC.CTH ---
Cardiology Progress Note - Subjective Chart note only. Patient not seen. - Objective Vital Signs Temp Pulse Resp BP BP Pulse Ox 08/19/17 11:18 74 18 104/65 95 08/19/17 08:18 97.5 F L 92 18 119/63 97 08/19/17 04:29 97.5 F L 80 18 98 08/19/17 00:40 97.5 F L 93 18 110/62 Admit Weight 176 lb 14.4 oz Weight 178 lb 9.6 oz 08/18/17 08/19/17 08/20/17 06:59 06:59 06:59 Intake Total 1060 1450 Output Total 8981 8768 Balance -9595 -867 - Labs Result Diagrams: 08/18/17 05:19 08/19/17 03:30 - Assessment/Plan 1. CLINICAL APPEALS SPECIALIST - uncertain etiology. Initial ECHO 07/2017 showed EF 35-40%. Patient then had stress test done in office 08/2017 showing distal anterior wall ischemic changes, dilated LV with EF down to 22%. LifeVest ordered and pending. Will need cath in the near future.
[2017-08-19 16:35] LABS: Calcium 9.4 mg/dL (7.8-10.44); Chloride 96 mmol/L (98-107); Potassium 3.9 mmol/L (3.5-5.1); Sodium 136 mmol/L (136-145)
[2017-08-19 16:36] LABS: Glucose 101 mg/dL (83-110)
[2017-08-19 16:38] LABS: Anion Gap 18 mmol/L (10-20); Carbon Dioxide 26 mmol/L (23-31)
[2017-08-19 16:39] LABS: Calc. Creatinine Clearance 30 mL/min (70-130); Estimated GFR-MDRD 29
[2017-08-19 16:40] LABS: BUN (Urea Nitrogen) 46 mg/dL (8.4-25.7)
--- NOTE | 2017-08-19 17:35 | DIS ---
DATE OF ADMISSION: 08/17/2017 DATE OF DISCHARGE: 08/19/2017 DISCHARGE DIAGNOSIS: Acute on chronic systolic heart failure. PROCEDURES: None. HOSPITAL COURSE: Mr. Valdez is a very pleasant 81-year-old gentleman who was admitted to the office due to atrial fibrillation with rapid ventricular response in addition to acute on chronic systolic heart failure. He was placed on IV Lasix. He did very well. He had significant diuresis and weight loss. On day of discharge, his potassium was decreased at 2.8. He was given potassium supplement w ith increased to a 3.9. His creatinine also increased from 13 to 2.1. I did state we would keep him overnight. He deferred and would like to go home. At this point, I will hold off on further Lasix. I have asked him to take his weights on a daily bas is. He will follow up with Rupa Wang in 4 days with a repeat BNP. We will also hold off on pota ssium supplementation. DISCHARGE MEDICATIONS: Eliquis 2.5 b.i.d. (asked him to cut his pills in half while at home), carved ilol 25 b.i.d., Lasix hold, losartan 25 daily hold, melatonin as prescribed. CONDITION AT DISCHARGE: Stable.
[2017-08-19 19:08] VITALS: BP 119/63; TEMP 98.4
[2017-08-19] MEDS ORDERED: Apixaban 2.5 MG TAB PO SCH (21:00)
== END 2017-08-19 18:04 | disposition home or self-care (01) | DRG 292 ==
LOC: 2NO 15:59
PROVIDERS: ADMIT Internal Medicine Cardiovascular Disease; ATTEND Internal Medicine Cardiovascular Disease
DX: I11.0 Hypertensive heart disease with heart failure (principal); I47.1 Supraventricular tachycardia; I42.9 Cardiomyopathy, unspecified; I48.0 Paroxysmal atrial fibrillation; I48.91 Unspecified atrial fibrillation; I50.23 Acute on chronic systolic (congestive) heart failure; I44.7 Left bundle-branch block, unspecified; G47.00 Insomnia, unspecified; Z96.652 Presence of left artificial knee joint
CPT/HCPCS: 36415; 71045; 80048; 80053; 82565; 83880; 84443; 85014; 85018; 85049; 93798; A4216; G8978-GP-CI; G8979-GP-CI; G8980-GP-CI; J1940

== ENCOUNTER 2017-09-13 13:31 | Observation (INO) | payer MEDICARE ==
[2017-09-13 14:38] VITALS: BMI 25.7
[2017-09-13 14:45] LABS: #Eosinphils 0.2 thou/uL (0.0-0.7); #Lymphocytes 1.1 thou/uL (1.20-3.40); #Monocytes 0.9 thou/uL (0.11-0.59); #Neutrophils 4.6 thou/uL (1.40-6.50); %Basophils 0.1 % (0.0-1.0); %Eosinophils 2.6 % (0.0-10.0); %Lymphocytes 16.8 % (21.0-51.0); %Neutrophils 67.6 % (42.0-75.0); Hemoglobin 12.7 g/dL (14.0-18.0); Mean Corpuscular HGB CONC 33.6 g/dL (32.0-36.0); Mean Corpuscular Hemoglobin 31.8 pg (27.0-31.0); Mean Corpuscular Volume 94.7 fl (80.0-94.0); Mean Platelet Volume 6.4 fL (7.4-10.4); Platelet Count 148 thou/uL (130-400); RBC Distribution Width 13.2 % (11.5-14.5); Red Blood Cell (RBC) Count 4.01 mill/uL (4.70-6.10); White Blood Cell (WBC) Count 6.8 thou/uL (4.8-10.8)
[2017-09-13 15:05] LABS: Anion Gap 11 mmol/L (10-20); BUN (Urea Nitrogen) 34 mg/dL (8.4-25.7); Calc. Creatinine Clearance 49 mL/min (70-130); Calcium 9.1 mg/dL (7.8-10.44); Carbon Dioxide 25 mmol/L (23-31); Chloride 104 mmol/L (98-107); Estimated GFR-MDRD 53; Glucose 99 mg/dL (83-110); Potassium 4.2 mmol/L (3.5-5.1); Sodium 136 mmol/L (136-145)
[2017-09-13] MEDS: Sodium Chloride 0.9% 1,000 ML IV SCH (16:29)
[2017-09-13] MEDS ORDERED: Loratadine 10 MG TAB PO PRN (20:14)
[2017-09-13] MEDS: Carvedilol 25 MG TAB PO SCH (20:44)
[2017-09-13] MEDS ORDERED: Melatonin 3 MG TAB PO SCH (21:00)
[2017-09-14] MEDS: Carvedilol 25 MG TAB PO SCH (03:44)
[2017-09-14] MEDS: Sodium Chloride 0.9% 1,000 ML IV SCH (05:14)
[2017-09-14 05:18] LABS: Anion Gap 11 mmol/L (10-20); BUN (Urea Nitrogen) 27 mg/dL (8.4-25.7); Calc. Creatinine Clearance 56 mL/min (70-130); Calcium 8.8 mg/dL (7.8-10.44); Carbon Dioxide 25 mmol/L (23-31); Chloride 108 mmol/L (98-107); Estimated GFR-MDRD 63; Glucose 90 mg/dL (83-110); Potassium 3.8 mmol/L (3.5-5.1); Sodium 140 mmol/L (136-145)
[2017-09-14 05:38] LABS: Band 4 % (5-11); Eosinophils 3 % (0-10); Hemoglobin 11.8 g/dL (14.0-18.0); Lymphocytes 22 % (21-51); MDiff Complete? YES; Mean Corpuscular HGB CONC 33.6 g/dL (32.0-36.0); Mean Corpuscular Volume 95.2 fl (80.0-94.0); Monocytes 14 % (0-10); Neutrophil 57 % (42-75); PLT Morphology Comment Appears Adequate; Platelet Count 131 thou/uL (130-400); RBC Distribution Width 13.2 % (11.5-14.5); Red Blood Cell (RBC) Count 3.68 mill/uL (4.70-6.10); White Blood Cell (WBC) Count 4.9 thou/uL (4.8-10.8)
[2017-09-14] MEDS ORDERED: Lidocaine 1% (PF) 30 ML VIAL ONE (06:25)
[2017-09-14] MEDS ORDERED: Heparin 10,000 UNITS/1 ML VIAL ONE (07:31)
[2017-09-14] MEDS ORDERED: Nitroglycerin 100MG/250ML BOT 250 ML ONE (07:31)
[2017-09-14] MEDS ORDERED: Verapamil 5 MG/2 ML VIAL ONE (07:31)
[2017-09-14] MEDS ORDERED: Fentanyl 100 MCG/2 ML VIAL ONE (07:53)
[2017-09-14] MEDS ORDERED: Midazolam HCl 2 mg/2 ml Vial ONE (07:53)
[2017-09-14] MEDS ORDERED: Nitroglycerin 0.4 MG TAB (25 Tab Bottle) SL PRN (08:19)
[2017-09-14] MEDS ORDERED: Acetaminophen/Codeine 30-300mg Tablet PO PRN ×2 (08:19)
[2017-09-14] MEDS ORDERED: traMADol HCl 50 MG TAB PO PRN (08:19)
[2017-09-14] MEDS ORDERED: Sodium Chloride 0.9% 200 ML IV SCH (08:30)
[2017-09-14] MEDS ORDERED: Sodium Chloride 0.9% 1,000 ML IV SCH (08:30)
[2017-09-14] MEDS ORDERED: Iopamidol 370 76% 100 ML VIAL ONE (12:30)
[2017-09-14 16:00] VITALS: BP 138/67; TEMP 97.5
--- NOTE | 2017-09-14 20:12 | CON ---
DATE OF CONSULTATION: 09/14/2017 HISTORY OF PRESENT ILLNESS: This is an 81-year-old gentleman who was previously in relatively good h ealth by his account until earlier this year when he underwent a left knee replacement by Dr. Vásquez. Prior to being discharged, he developed atrial fibrillation and in the course of evaluation was foun d to have a rather significant depression and left ventricular systolic function by echo as well as m [id number] mitral regurgitation. He was begun on treatment for his atrial fibrillation and de creased EF including treatment with Coreg, Lasix and Eliquis. He has had no chest pain, but remains significantly symptomatic. He is fatigued easily and feels much worse than prior to his surgical int ervention. He is unable to lie flat in bed without feeling like he is having a choking sensation and cannot breathe. He underwent cardiac catheterization today showing a significant calcified lesion i n the proximal LAD involving a small to medium diagonal with a rather small distal LAD. Circ and rig ht systems were normal. PAST MEDICAL HISTORY: Significant in that prior to this year the patient was relatively active. 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 He was noted to have some mild renal dysfunction with a creatinine as hig h as 2 while hospitalized earlier and about 1.3 during this admission. MEDICATIONS: Include Coreg 12.5 b.i.d., Eliquis 5 daily, Lasix 20 mg b.i.d. PHYSICAL EXAMINATION: GENERAL: He is an elderly gentleman, thin, height 5 feet 10 inches, weight 173. VITAL SIGNS: Blood pressure 138/75, regular rhythm. NECK: No carotid bruits. No JVD. LUNGS: Clear to auscultation anteriorly. CARDIAC: A 2-3/6 systolic mitral regurg murmur toward the left axillary line toward the apex of his heart. ABDOMEN: Soft, nontender. EXTREMITIES: He has no peripheral edema at this time with easily palpable pedal pulses. ASSESSMENT AND PLAN: The patient presents significant surgical risk given his ejection fraction, whi ch was estimated 30% by echo, but nuclear stress study, which was done showed an ejection fraction of 22%. Previous echo showed [id number] MR and I suspect most of the patient's symptoms are a combination of the severe MR with the poor EF. He does have an LAD lesion, but this probably does no t explain his diminished left ventricular systolic function. I have discussed with Dr. Saavedra who will repeat his echo to better assess his mitral regurgitation, but if it indeed is moderate to jacqueline re, given his symptoms, he may benefit from referral to tertiary care center for mitral valve repair in conjunction with bypass.
--- NOTE | 2017-09-15 09:02 | DIS ---
DATE OF ADMISSION: 09/13/2017 DATE OF DISCHARGE: 09/14/2017 DISCHARGE DIAGNOSIS: Severe coronary artery disease. PROCEDURE: Coronary angiography. RECOMMENDATIONS: Mr. Valdez was admitted one day prior to the procedure for hydration. He underwen t coronary angiography on 09/14/2017. He was found to have severe 1 vessel disease of the proximal L AD. Surgery was consulted. He was felt to be at this point too high risk given his LVEF and profoun d weakness. It was recommended he continue rehabilitation. Also, recommend repeating his echo to as sess his mitral valve. No change in medical therapy. FOLLOWUP: Follow up with Dr. Saavedra in 1 week.
== END 2017-09-14 18:00 | disposition home or self-care (01) ==
LOC: 2SW 13:31
PROVIDERS: ADMIT Internal Medicine Cardiovascular Disease; ATTEND Internal Medicine Cardiovascular Disease
PROC: 4A023N7 Measurement of Cardiac Sampling and Pressure, Left Heart, Percutaneous Approach (ICD-10-PCS; principal; 2017-09-13)
PROC: B2111ZZ Fluoroscopy of Multiple Coronary Arteries using Low Osmolar Contrast (ICD-10-PCS; 2017-09-13)
DX: I25.10 Atherosclerotic heart disease of native coronary artery without angina pectoris (principal); I11.0 Hypertensive heart disease with heart failure; I50.22 Chronic systolic (congestive) heart failure; I48.0 Paroxysmal atrial fibrillation; I34.0 Nonrheumatic mitral (valve) insufficiency; Z79.01 Long term (current) use of anticoagulants; Z79.899 Other long term (current) drug therapy
CPT/HCPCS: 76942; 80048 ×2; 85025 ×2; 93458; 96360; 96361 ×2; C1760; C1769; G0378; G0379; 36415; 99152; 99153; J1644; J2001; J2250; J3010

== ENCOUNTER 2017-10-01 10:26 | Observation (INO) | payer MEDICARE ==
[2017-09-30 15:56] VITALS: BMI 25.5
[2017-10-01] MEDS ORDERED: Iopamidol 370 76% 50 ML VIAL FS ONE (11:13)
[2017-10-01 11:42] LABS: Hemoglobin 13.4 g/dL (14.0-18.0); Mean Corpuscular HGB CONC 33.2 g/dL (32.0-36.0); Mean Corpuscular Hemoglobin 32.1 pg (27.0-31.0); Mean Corpuscular Volume 96.7 fl (80.0-94.0); Mean Platelet Volume 6.9 fL (7.4-10.4); Platelet Count 149 thou/uL (130-400); RBC Distribution Width 13.6 % (11.5-14.5); Red Blood Cell (RBC) Count 4.16 mill/uL (4.70-6.10); White Blood Cell (WBC) Count 6.8 thou/uL (4.8-10.8)
[2017-10-01 11:43] LABS: INR-International Normal Ratio 1.1; Prothrombin Time 14.3 SEC (12.0-14.7)
[2017-10-01] MEDS ORDERED: CEFAZOLIN/Water 2 GM/20 ML SYRINGE ONE (12:06)
[2017-10-01] MEDS ORDERED: Lidocaine 1% (PF) 30 ML VIAL ONE (12:07)
[2017-10-01 12:14] LABS: Anion Gap 13 mmol/L (10-20); BUN (Urea Nitrogen) 27 mg/dL (8.4-25.7); Calc. Creatinine Clearance 52 mL/min (70-130); Calcium 9.4 mg/dL (7.8-10.44); Carbon Dioxide 22 mmol/L (23-31); Estimated GFR-MDRD 59; Glucose 118 mg/dL (83-110); Potassium 4.4 mmol/L (3.5-5.1); Sodium 136 mmol/L (136-145)
[2017-10-01 12:29] LABS: Chloride 105 mmol/L (98-107)
[2017-10-01] MEDS ORDERED: PHENYLEPHRINE-NS 100 MCG/ML 10 ML SYRINGE ONE (13:37)
[2017-10-01] MEDS ORDERED: Lidocaine 1% PF 5 ML VIAL ONE (13:37)
[2017-10-01] MEDS ORDERED: PROPOFOL 200 MG/20 ML VIAL ONE (13:37)
[2017-10-01] MEDS ORDERED: Albuterol Sulfate 1.25 MG/3 ML NEB ONE (13:51)
[2017-10-01] MEDS ORDERED: Acetaminophen/Codeine 30-300mg Tablet PO PRN ×2 (16:15)
[2017-10-01] MEDS ORDERED: Artificial Tear Sol 15 ML BOT EA EYE PRN (16:19)
--- NOTE | 2017-10-01 16:44 | RAD ---
CHEST ONE VIEW: HISTORY: Post pacemaker placement. COMPARISON: Chest radiograph from 08/08/2017. FINDINGS: The heart size is enlarged. Mild pulmonary venous congestion and early edema. A three-lead AICD/pac er is present. No pneumothorax. Calcific granuloma in the left lung base. IMPRESSION: Cardiomegaly and mild pulmonary edema. POS: JULIANH
[2017-10-02] MEDS: Citalopram 20 MG TAB PO SCH ×2 (07:30→07:35)
[2017-10-02] MEDS ORDERED: Furosemide 20 MG TAB PO SCH (09:00)
[2017-10-02] MEDS ORDERED: Carvedilol 25 MG TAB PO SCH ×2 (09:00→17:00)
[2017-10-02] MEDS ORDERED: PROSTATA PO SCH (09:00)
[2017-10-02] MEDS ORDERED: Multivitamin W/ Minerals 1 TAB PO SCH (09:00)
[2017-10-02 12:10] VITALS: BP 139/72; TEMP 98.2
[2017-10-02] MEDS ORDERED: Apixaban 2.5 MG TAB PO SCH (21:00)
--- NOTE | 2017-10-03 01:02 | DIS ---
DISCHARGE DIAGNOSES: 1. Placement of resynchronization ICD on this admission. 2. Severe left ventricular dysfunction with ejection fraction of 25%-30%. 3. Left bundle branch block. 4. Paroxysmal atrial fibrillation. 5. Proximal left anterior descending disease, felt best to treat medically with his severe left ventricular dysfunction. DISCHARGE MEDICATIONS: Keflex 500 mg q.i.d. x5 days, Eliquis 2.5 mg b.i.d., carvedilol 25 mg b.i.d., and furosemide 20 mg q.a.m. DISCHARGE DISPOSITION: The patient will continue to follow with Dr. Saavedra as well as Dr. De La Fuente. HISTORY: Mr. Valdez underwent placement of a resynchronization biventricular ICD. He noted dramatic improvement in his breathing and the family noticed that he had increased energy as well as increased facial color. He was observed overnight and discharged on his same medications plus Keflex 500 q.i.d. x5 days. [facility]
[2017-10-03] MEDS ORDERED: Carvedilol 25 MG TAB PO SCH (08:00)
== END 2017-10-02 16:29 | disposition home or self-care (01) ==
LOC: CCL 10:26 → 2SW 16:28
PROVIDERS: ADMIT Internal Medicine Cardiovascular Disease; ATTEND Internal Medicine Cardiovascular Disease
PROC: 0JH609Z Insertion of Cardiac Resynchronization Defibrillator Pulse Generator into Chest Subcutaneous Tissue and Fascia, Open Approach (ICD-10-PCS; principal; 2017-10-01)
PROC: 02HL3KZ Insertion of Defibrillator Lead into Left Ventricle, Percutaneous Approach (ICD-10-PCS; 2017-10-01)
PROC: 02HK3KZ Insertion of Defibrillator Lead into Right Ventricle, Percutaneous Approach (ICD-10-PCS; 2017-10-01)
DX: I11.0 Hypertensive heart disease with heart failure (principal); I50.22 Chronic systolic (congestive) heart failure; I25.5 Ischemic cardiomyopathy; I48.0 Paroxysmal atrial fibrillation; I25.10 Atherosclerotic heart disease of native coronary artery without angina pectoris; I45.2 Bifascicular block; Z79.01 Long term (current) use of anticoagulants; Z79.899 Other long term (current) drug therapy
CPT/HCPCS: 33225; 33249; 36005; 71045; 75820; 80048; 85027; 85610; 85730; C1882; C1895; C1898; C1900; G0378; 36415; J2001; J2704; J3490

== ENCOUNTER 2023-05-19 09:09 | Inpatient (IN) | payer MEDICARE ==
[2023-05-19 09:40] LABS: #Eosinphils 0.1 thou/uL (0.0-0.7); #Neutrophils 6.4 thou/uL (1.40-6.50); %Basophils 0.4 % (0.0-1.0); %Eosinophils 1.6 % (0.0-10.0); %Monocytes 11.4 % (0.0-10.0); %Neutrophils 72.2 % (42.0-75.0); Hematocrit 44.1 % (42.0-52.0); Hemoglobin 15.1 g/dL (14.0-18.0); Mean Corpuscular HGB CONC 34.2 g/dL (32.0-36.0); Mean Corpuscular Hemoglobin 32.8 pg (27.0-31.0); Mean Corpuscular Volume 95.7 fl (78.0-98.0); Mean Platelet Volume 9.9 fL (7.4-10.4); Platelet Count 141 10x3/uL (130-400); RBC Distribution Width 13.9 % (11.5-14.5); Red Blood Cell (RBC) Count 4.61 mill/uL (4.70-6.10); White Blood Cell (WBC) Count 8.9 10x3/uL (4.8-10.8)
[2023-05-19] MEDS ORDERED: Acetaminophen 500 MG TAB ONE (09:58)
[2023-05-19 10:05] LABS: ALT (SGPT) 19 U/L (8-55); AST (SGOT) 26 U/L (5-34); Alkaline Phosphatase 96 U/L (40-110); Anion Gap 14 mmol/L (10-20); BUN (Urea Nitrogen) 33 mg/dL (8.4-25.7); Bilirubin, Total 1.2 mg/dL (0.2-1.2); Calc. Creatinine Clearance 0 mL/min (70-130); Calcium 8.9 mg/dL (7.8-10.44); Carbon Dioxide 21 mmol/L (23-31); Chloride 105 mmol/L (98-107); Estimated GFR 46; Glucose 116 mg/dL (83-110); Lipase 62 U/L (8-78); Magnesium 2.1 mg/dL (1.6-2.6); Potassium 4.4 mmol/L (3.5-5.1); Sodium 136 mmol/L (136-145)
[2023-05-19] MEDS ORDERED: Magnesium 2 GM/50 ML(in water) 2 GM in Premix 1 BAG IVPB SCH (10:30)
[2023-05-19] MEDS ORDERED: Iopamidol-370 76% 500 ML MDV (1 ML CHARGE) ONE (11:11)
[2023-05-19] MEDS ORDERED: dilTIAZem 125 MG/25 ML SDV ONE (11:39)
[2023-05-19 12:16] LABS: SARS-CoV-2 NAA Rapid Test Not Detected (NotDetected)
[2023-05-19 12:21] LABS: Bilirubin Negative (Negative); Blood, Urine Negative (Negative); Glucose, Urine (Dipstick) Negative (Negative); Ketone, Urine Negative (Negative); Leukocyte Negative (Negative); Nitrite Negative (Negative); Protein, Urine (Dipstick) Negative (Neg-Trace); Urobilinogen 0.2 mg/dL (Less than 2)
[2023-05-19 12:26] LABS: Clarity Clear (Clear); Specific Gravity, Urine 1.006 (1.002-1.036)
[2023-05-19 12:28] LABS: Bacteria/HPF None Seen HPF (None Seen); CAUTI Indications for Culture Dysuria,urgency,freq; RBC/HPF None Seen HPF (0-3); Squamous Epithelial None Seen HPF (0-3); WBC/HPF None Seen HPF (0-3)
[2023-05-19 12:30] LABS: Urine Culture Reflex No No
[2023-05-19] MEDS ORDERED: Sodium Chloride 0.9% 100 ML ONE (12:50)
[2023-05-19 13:42] LABS: Troponin I 0.091 ng/mL (< 0.028)
[2023-05-19] MEDS ORDERED: Acetaminophen 325 MG TAB PO PRN (13:45)
[2023-05-19] MEDS ORDERED: Ondansetron PF 4 MG/2 ML Vial IVP PRN ×2 (13:45→14:27)
[2023-05-19] MEDS ORDERED: Ondansetron ODT 4 MG TAB SL PRN (13:45)
[2023-05-19] MEDS ORDERED: dilTIAZem 125 MG, Admixture Fee 1 EACH in Sodium Chloride 0.9% 100 ML IVPB SCH (13:45)
[2023-05-19] MEDS ORDERED: Ondansetron ODT 4 MG TAB PO PRN (14:27)
[2023-05-19 16:02] LABS: Troponin I 0.084 ng/mL (< 0.028)
[2023-05-19 17:46] VITALS: BMI 27.6
[2023-05-19] MEDS ORDERED: FLU VACC QS2023(65UP)/MF59C/PF 60 MCG/0.5 ML SYRINGE IM ONE (18:00)
[2023-05-20] MEDS ORDERED: dilTIAZem 125 MG in Sodium Chloride 0.9% 100 ML IVPB SCH (00:30)
[2023-05-20] MEDS ORDERED: Ketorolac Tromethamine 30 MG (1 mL) VIAL IVP SCH (01:15)
[2023-05-20 04:37] LABS: #Eosinphils 0.3 thou/uL (0.0-0.7); #Monocytes 1.3 thou/uL (0.11-0.59); #Neutrophils 7.4 thou/uL (1.40-6.50); %Basophils 0.3 % (0.0-1.0); %Lymphocytes 10.9 % (21.0-51.0); %Monocytes 12.9 % (0.0-10.0); %Neutrophils 72.5 % (42.0-75.0); Hematocrit 43.6 % (42.0-52.0); Hemoglobin 14.7 g/dL (14.0-18.0); Mean Corpuscular HGB CONC 33.7 g/dL (32.0-36.0); Mean Corpuscular Hemoglobin 32.5 pg (27.0-31.0); Mean Corpuscular Volume 96.5 fl (78.0-98.0); Mean Platelet Volume 9.8 fL (7.4-10.4); Platelet Count 126 10x3/uL (130-400); Red Blood Cell (RBC) Count 4.52 mill/uL (4.70-6.10); White Blood Cell (WBC) Count 10.2 10x3/uL (4.8-10.8)
[2023-05-20 05:13] LABS: Anion Gap 15 mmol/L (10-20); BUN (Urea Nitrogen) 35 mg/dL (8.4-25.7); Calc. Creatinine Clearance 40 mL/min (70-130); Calcium 8.4 mg/dL (7.8-10.44); Carbon Dioxide 19 mmol/L (23-31); Chloride 107 mmol/L (98-107); Estimated GFR 44; Glucose 85 mg/dL (83-110); Magnesium 2.9 mg/dL (1.6-2.6); Potassium 4.4 mmol/L (3.5-5.1); Sodium 137 mmol/L (136-145)
[2023-05-20] MEDS ORDERED: Carvedilol 25 MG TAB PO SCH (08:00)
[2023-05-20] MEDS ORDERED: Furosemide 20 MG TAB PO SCH ×2 (09:00→10:00)
[2023-05-20] MEDS ORDERED: dilTIAZem 30 MG TAB PO PRN (10:19)
[2023-05-20] MEDS ORDERED: Dutasteride 0.5 MG CAP PO SCH (10:30)
[2023-05-20] MEDS: Acetaminophen 325 MG TAB PO PRN ×2 (11:13→19:05)
[2023-05-20] MEDS ORDERED: Metolazone 2.5 MG TAB PO SCH (13:45)
[2023-05-20] MEDS ORDERED: Carvedilol 6.25 MG TAB PO SCH (17:00)
[2023-05-20] MEDS: Carvedilol 25 MG TAB PO SCH (17:36)
[2023-05-20] MEDS ORDERED: Atorvastatin Calcium 20 MG TAB PO SCH (21:00)
[2023-05-21 06:03] LABS: #Eosinphils 0.4 thou/uL (0.0-0.7); #Monocytes 1.4 thou/uL (0.11-0.59); #Neutrophils 5.5 thou/uL (1.40-6.50); %Basophils 0.2 % (0.0-1.0); %Eosinophils 4.8 % (0.0-10.0); %Lymphocytes 15.9 % (21.0-51.0); %Monocytes 15.6 % (0.0-10.0); %Neutrophils 63.2 % (42.0-75.0); Hematocrit 41.2 % (42.0-52.0); Hemoglobin 13.8 g/dL (14.0-18.0); Mean Corpuscular HGB CONC 33.5 g/dL (32.0-36.0); Mean Corpuscular Hemoglobin 32.3 pg (27.0-31.0); Mean Corpuscular Volume 96.5 fl (78.0-98.0); Mean Platelet Volume 10.4 fL (7.4-10.4); RBC Distribution Width 14.2 % (11.5-14.5); Red Blood Cell (RBC) Count 4.27 mill/uL (4.70-6.10); White Blood Cell (WBC) Count 8.7 10x3/uL (4.8-10.8)
[2023-05-21 06:27] LABS: Anion Gap 16 mmol/L (10-20); BUN (Urea Nitrogen) 36 mg/dL (8.4-25.7); Calc. Creatinine Clearance 38 mL/min (70-130); Calcium 8.4 mg/dL (7.8-10.44); Carbon Dioxide 22 mmol/L (23-31); Chloride 105 mmol/L (98-107); Estimated GFR 41; Glucose 75 mg/dL (83-110); Magnesium 2.4 mg/dL (1.6-2.6); Potassium 4.5 mmol/L (3.5-5.1); Sodium 138 mmol/L (136-145)
[2023-05-21 06:30] LABS: Platelet Count 127 10x3/uL (130-400)
[2023-05-21] MEDS ORDERED: Furosemide 40 MG TAB PO SCH (07:30)
[2023-05-21 08:07] VITALS: BP 102/72; TEMP 97.8
[2023-05-21] MEDS: Carvedilol 25 MG TAB PO SCH (08:07)
[2023-05-21] MEDS ORDERED: Dutasteride 0.5 MG CAP PO SCH (09:00)
[2023-05-21] MEDS ORDERED: Furosemide 20 MG TAB PO SCH (09:00)
== END 2023-05-21 11:24 | disposition home or self-care (01) | DRG 280 ==
LOC: ERS 09:09 → ERHOLD 12:26 → OBSVTOIN 12:26 → 2NO 17:16
PROVIDERS: ADMIT Family Medicine; ATTEND Internal Medicine
DX: I48.0 Paroxysmal atrial fibrillation (principal); I50.43 Acute on chronic combined systolic (congestive) and diastolic (congestive) heart failure; I21.A1 Myocardial infarction type 2; I13.0 Hypertensive heart and chronic kidney disease with heart failure and stage 1 through stage 4 chronic kidney disease, or unspecified chronic kidney disease; I71.21 Aneurysm of the ascending aorta, without rupture; R31.9 Hematuria, unspecified; R53.1 Weakness; N18.30 Chronic kidney disease, stage 3 unspecified; R79.89 Other specified abnormal findings of blood chemistry; D63.1 Anemia in chronic kidney disease; D53.9 Nutritional anemia, unspecified; M19.012 Primary osteoarthritis, left shoulder; M19.011 Primary osteoarthritis, right shoulder; Z96.652 Presence of left artificial knee joint; I44.7 Left bundle-branch block, unspecified; I34.0 Nonrheumatic mitral (valve) insufficiency; I25.5 Ischemic cardiomyopathy; Z95.0 Presence of cardiac pacemaker; Z11.52 Encounter for screening for COVID-19; Z79.01 Long term (current) use of anticoagulants; Z98.49 Cataract extraction status, unspecified eye
CPT/HCPCS: 36415; 71045; 71275; 80048; 80053; 81001; 83605; 83690; 83735; 83880; 84484; 85025; 87040; 93005; 93010; 96365; 96366; 96367; 96376; J3475; J3490; Q0162; Q9967

== ENCOUNTER 2023-07-07 08:24 | Day surgery (SDC) | payer MEDICARE ==
[2023-07-05 12:28] VITALS: BMI 25.5
[2023-07-05 13:20] LABS: Hematocrit 46.9 % (38.8-50.0); Mean Corpuscular HGB CONC 34.1 g/dL (32.0-36.0); Mean Corpuscular Hemoglobin 33.3 pg (27.0-33.0); Mean Corpuscular Volume 97.7 fl (81.2-95.1); Mean Platelet Volume 10.1 fl (7.4-10.4); Platelet Count 155 10x3/uL (150-450); RBC Distribution Width 15.2 % (11.5-14.5); White Blood Cell (WBC) Count 8.3 10x3/uL (3.5-10.5)
[2023-07-05 13:30] LABS: INR-International Normal Ratio 1.1; PTT 31.6 sec (22.0-33.0); Prothrombin Time 12.1 sec (9.5-12.1)
[2023-07-05 13:35] LABS: Anion Gap 18 mmol/L (10-20); BUN (Urea Nitrogen) 49 mg/dL (8.4-25.7); Calc. Creatinine Clearance 22 mL/min (70-130); Calcium 9.3 mg/dL (7.8-10.44); Carbon Dioxide 21 mmol/L (23-31); Chloride 106 mmol/L (98-107); Estimated GFR 24; Glucose 86 mg/dL (83-110); Potassium 5.8 mmol/L (3.5-5.1); Sodium 139 mmol/L (136-145)
[2023-07-07] MEDS ORDERED: Heparin 10,000 UNITS/ 10 ML VIAL ONE (09:00)
[2023-07-07] MEDS ORDERED: DOPamine 400 MG/D5W 250 ML 0 ML ONE (09:00)
[2023-07-07 09:26] LABS: Anion Gap 15 mmol/L (10-20); BUN (Urea Nitrogen) 45 mg/dL (8.4-25.7); Calc. Creatinine Clearance 25 mL/min (70-130); Calcium 9.5 mg/dL (7.8-10.44); Carbon Dioxide 18 mmol/L (23-31); Chloride 108 mmol/L (98-107); Estimated GFR 27; Glucose 99 mg/dL (83-110); Potassium 5.3 mmol/L (3.5-5.1); Sodium 136 mmol/L (136-145)
[2023-07-07] MEDS ORDERED: Lidocaine 1% PF 5 ML VIAL ONE (11:14)
[2023-07-07] MEDS ORDERED: PROPOFOL 200 MG/20 ML VIAL ONE (11:14)
[2023-07-07] MEDS ORDERED: ePHEDrine Sulfate 50 MG/10 ML VIAL ONE (11:14)
[2023-07-07] MEDS ORDERED: Apixaban 2.5 MG TAB PO SCH (12:45)
== END 2023-07-07 13:45 | disposition home or self-care (01) ==
LOC: SDC 08:24
PROVIDERS: ATTEND Internal Medicine Cardiovascular Disease
PROC: 5A2204Z Restoration of Cardiac Rhythm, Single (ICD-10-PCS; principal; 2023-07-07)
PROC: B246ZZ4 Ultrasonography of Right and Left Heart, Transesophageal (ICD-10-PCS; 2023-07-07)
DX: I48.0 Paroxysmal atrial fibrillation (principal); T82.191A Other mechanical complication of cardiac pulse generator (battery), initial encounter; I13.0 Hypertensive heart and chronic kidney disease with heart failure and stage 1 through stage 4 chronic kidney disease, or unspecified chronic kidney disease; I50.22 Chronic systolic (congestive) heart failure; N18.9 Chronic kidney disease, unspecified; I25.10 Atherosclerotic heart disease of native coronary artery without angina pectoris; I08.3 Combined rheumatic disorders of mitral, aortic and tricuspid valves; I45.2 Bifascicular block; I51.3 Intracardiac thrombosis, not elsewhere classified; R31.9 Hematuria, unspecified; I48.4 Atypical atrial flutter; Z79.01 Long term (current) use of anticoagulants; Z95.810 Presence of automatic (implantable) cardiac defibrillator
CPT/HCPCS: 80048; 85027; 85610; 85730; 92960; 93005; 93312; J1265; J1644; J2704

== ENCOUNTER 2024-02-03 09:40 | Outpatient (CLI) | payer MEDICARE ==
[2024-02-03 11:22] LABS: #Basophils 0.03 10x3/uL (0.0-0.2); %Basophils 0.4 % (0.0-1.0); %Lymphocytes 10.6 % (21.0-51.0); %Neutrophils 73.4 % (42.0-75.0); Hematocrit 35.3 % (42.0-52.0); Hemoglobin 10.7 g/dL (14.0-18.0); Mean Corpuscular HGB CONC 30.3 g/dL (32.0-36.0); Mean Corpuscular Volume 92.4 fL (78.0-98.0); Mean Platelet Volume 9.7 fL (7.4-10.4); Platelet Count 186 10x3/uL (130-400); RBC Distribution Width 15.6 % (11.5-14.5); Red Blood Cell (RBC) Count 3.82 mill/uL (4.70-6.10)
[2024-02-03 11:36] LABS: INR-International Normal Ratio 1.3; Prothrombin Time 16.2 sec (12.0-14.7)
[2024-02-03 11:37] LABS: PTT 36.4 sec (22.9-36.1)
[2024-02-03 11:40] LABS: Anion Gap 14 mmol/L (10-20); BUN (Urea Nitrogen) 32 mg/dL (8.4-25.7); Calc. Creatinine Clearance 0 mL/min (70-130); Calcium 9.1 mg/dL (7.8-10.44); Carbon Dioxide 25 mmol/L (23-31); Chloride 106 mmol/L (98-107); Estimated GFR 31; Glucose 87 mg/dL (83-110); Potassium 3.6 mmol/L (3.5-5.1); Sodium 141 mmol/L (136-145)
== END 2024-02-03 09:41 | disposition home or self-care (01) ==
LOC: LABBT 09:40
PROVIDERS: ATTEND Internal Medicine Cardiovascular Disease
DX: Z01.812 Encounter for preprocedural laboratory examination (principal); I48.0 Paroxysmal atrial fibrillation; R31.9 Hematuria, unspecified
CPT/HCPCS: 80048; 85025; 85610; 85730

== ENCOUNTER 2024-02-09 06:58 | Day surgery (SDC) | payer MEDICARE ==
[2024-02-03 10:19] VITALS: BMI 25.4
[2024-02-09] MEDS ORDERED: Etomidate 40 MG (20 mL) VIAL ONE (09:48)
[2024-02-09] MEDS ORDERED: Lidocaine 1% PF 5 ML VIAL ONE (10:01)
[2024-02-09] MEDS ORDERED: PROPOFOL 200 MG/20 ML VIAL ONE (10:01)
== END 2024-02-09 11:58 | disposition home or self-care (01) ==
LOC: SDC 06:58
PROVIDERS: ATTEND Internal Medicine Cardiovascular Disease
PROC: B246ZZ4 Ultrasonography of Right and Left Heart, Transesophageal (ICD-10-PCS; principal; 2024-02-09)
DX: I48.19 Other persistent atrial fibrillation (principal); I50.22 Chronic systolic (congestive) heart failure; I42.9 Cardiomyopathy, unspecified; Z95.818 Presence of other cardiac implants and grafts
CPT/HCPCS: 93312; J2704